=== PATIENT | female | born 1950 | race Caucasian/White ===

== ENCOUNTER 2017-01-28 05:27 | Inpatient (IN) | payer MEDICARE, BC ==
--- NOTE | 2017-01-05 14:00 | NUR ---
JOINT REPLACEMENT PREOP CLASS PATIENT ATTENDED JOINT REPLACEMENT PREOP CLASS. CASE MANAGEMENT CONTACT INFORMATION PROVIDED. EDUCATION WAS PROVIDED REGARDING WHAT TO EXPECT BEFORE, DURING AND AFTER SURGERY. INCLUDING: OVERVIEW OF ANATOMY AND PHYSIOLOGY HOSPITAL TREATMENT SCHEDULE THERAPY DEMONSTRATION CASE MANAGEMENT RESPONSIBILITIES DISCHARGE PLANNING EQUIPMENT NEEDS JOINT REPLACEMENT WORKBOOK ANTI-COAGULATION SURGERY STRONG NUTRITIONAL PROTOCOL DISCHARGE INSTRUCTIONS [facility] [place] [facility] PATIENT PORTAL, WITH INSTRUCTIONS CJR AND PREOP SURVERY PREOP BATHING- CHG GIVEN ALL PATIENT'S QUESTIONS ANSWERED TO THEIR SATISFACTION. PATIENTS AND COACHES ENCOURAGED TO CALL WITH ANY ADDITIONAL QUESTIONS OR CONCERNS. CM FOLLOWING FOR TRANSITIONAL CARE PLANNING NEEDS DURING HOSPITALIZATION.
--- NOTE | 2017-01-06 10:35 | NUR ---
PMH, allergies, meds reviewed and documented. Preop and DOS instructions given, patient has already received the handouts of medications to stop before surgery, shower instructions and CHG, ortho consent, letter from Dr Thompson, Surgical Services pamphlet and my contact information. Patient attended class yesterday and had minimal questions. Addendum: 01/06/17 at 1333 by KAROLYN WHALEN RN I did compliment that patient on cutting back on her smoking down to only a couple of cigarettes per day. I encouraged her to continue to try to quit before surgery due to the increased risk of infection.
[~2017-01-28] VITALS: Ht 167.6 cm; Wt 92.4 kg
[2017-01-28] VITALS (45 sets, daily range): BP systolic 83–154; BP diastolic 51–95; PULSE 54–84; RESP 12–25; TEMP 96.4–98.1; O2SAT 87–97; Ht 167.6 cm; Wt 92.4 kg
[~2017-01-28 05:27] MED LIST: ASPI-557 PO; CHOL100018 PO; ESTR0.5T4 PO; GABA-338 PO; GLIM1TAB2 PO; METF10002 PO; MULT-933 PO; NAPR500T3 PO; TRAM50TA4 PO; VITA400C19 PO
--- OUTSIDE RECORDS SUMMARY | 2017-01-28 05:34 | XMS REPORT | Referral Summary ---
Author Author [facility], [facility] Organization [facility] Address Unknown Phone Unavailable Care Team Providers Care Television Production Technician Name Role Phone Chelsey Yarbrough Primary Care Physician [phone] Encounter Date(s): 07/20/16 - 07/20/16 [facility] [address] [place] [id number]- Discharge Diagnosis: Bronchitis Discharge Diagnosis: Tobacco use Discharge Disposition: 01-Home or Self Care Attending Physician: Jb Hanson PA-C Admitting Physician: Jb Hanson PA-C Vital Signs Most recent to 1 oldest [Reference Range]: Temperature Tympanic 37.0 degC [36.6-38.1 degC] (07/20/16 5:28 PM) Peripheral Pulse 88 bpm Rate [60-100 bpm] (07/20/16 5:28 PM) Blood Pressure 140/88 mmHg [90-140/60-90 mmHg] (07/20/16 5:28 PM) SpO2 93 % (07/20/16 5:28 PM) Problem List Condition Effective Dates Status Health Status Informant Diabetes(Confirmed) Active Allergies, Adverse Reactions, Alerts No Known Allergies Medications albuterol CFC free 90 mcg/inh inhalation aerosol 2 puffs, Inhalation, q4hr, as needed for wheezing, # 18 g, 0 Refill(s), Pharmacy : [facility] [id number] Start Date: 07/20/16 Status: Ordered estradiol cypionate mg, IntraMuscular, q4wk, 0 Refill(s) Start Date: 07/20/16 Status: Ordered gabapentin Oral, 0 Refill(s) Start Date: 07/20/16 Status: Ordered Januvia Oral, Daily, 0 Refill(s) Start Date: 07/20/16 Status: Ordered metFORMIN Oral, 0 Refill(s) Start Date: 07/20/16 Status: Ordered Tessalon Perles 100 mg oral capsule 100 mg 1 caps, Oral, TID, X 10 days, # 30 caps, 0 Refill(s), Pharmacy: [id number], 1 caps Oral TID,x10 days Start Date: 07/20/16 Stop Date: 07/30/16 Status: Ordered Results No data available for this section Immunizations No data available for this section Procedures Procedure Date Related Diagnosis Body Site Arthroscopy of knee with meniscus repair1 H/O: hysterectomy 1bilateral Social History Social History Type Response Smoking Status Current every day smoker; Type: Cigarettes; Tobacco use per day: 1/2 pack or more Assessment and Plan No data available for this section
--- OUTSIDE RECORDS SUMMARY | 2017-01-28 05:34 | XMS REPORT | Summary of Care ---
Author Author Javier Jacobson M.D. Organization Unknown Address [address] [place], [place] [id number] Phone Unavailable Care Team Providers Care Superintendent Nonselling Name Role Phone Jose Kapoor, Andre Unavailable Unavailable Kasie Garcia PP Unavailable Unavailable Unavailable Functional Status Functional Status Health Issues* Name Dates Details Functional status health issues are not documented Status: Cognitive Status Health Issues* Name Dates Details Cognitive status health issues are not documented Status: Problems Name Dates Details Pain in joint of right knee (719.46, M25.561) Status: Active Pain in joint of left knee (719.46, M25.562) Status: Active Dysphagia (787.20, R13.10) Status: Active Postmenopausal status (V49.81, Z78.0) Status: Active Chronic periodontal disease (523.9, K05.6) Status: Active Eczema, dyshidrotic (705.81, L30.1) Status: Active Diabetes mellitus (250.00, E11.9) Status: Active Osteoarthritis of knee (715.96, M17.9) Status: Active Rash (782.1, R21) Status: Active Menopausal symptoms (627.2, N95.1) Status: Active Type 2 diabetes mellitus, uncontrolled (250.02, E11.65) Status: Active Hypertension (401.9, I10) Status: Active Nocturia (788.43, R35.1) Status: Active Obesity (278.00, E66.9) Status: Active Overactive bladder (596.51, N32.81) Status: Active Granuloma annulare (695.89, L92.0) Status: Active Medications Name Dates Details Neurontin 800 MG Oral Tablet * Started 24-Feb-2013 ActiveClobetasol Propionate 0.05 % External Cream APPLY SPARINGLY TO AFFECTED AREA(S) TWICE DAILY * Quantity: 1 Refills: 1 Kasie Garcia M.D.* Started 24-Jul-2014 [id number] GM Tube MetFORMIN HCl - 1000 MG Oral Tablet TAKE 1 TABLET TWICE DAILY WITH MEALS. * Quantity: 180 Refills: 3 Kasie Garcia M.D.* Started 04-Jan-2015 ActiveJanuvia 100 MG Oral Tablet TAKE 1 TABLET BY MOUTH DAILY DX 250 * Quantity: 30 Refills: 3 Kasie Garcia M.D.* Started 04-Jan-2015 ActiveAccu-Chek FastClix Lancets Miscellaneous TEST ONCE DAILY AND NEEDED. DX 250.02 * Quantity: 1 Refills: 2 Kasie Garcia M.D.* Started 17-Jan-2015 [id number] Miscellaneous Box Accu-Chek SmartView In Vitro Strip TEST ONCE DAILY. AND NEEDED DX 250.02 * Quantity: 1 Refills: 2 Kasie Garcia M.D.* Started 17-Jan-2015 [id number] Strip Box Allergies and Adverse Reactions Name Dates Details No Known Drug Allergies Status: Active Past Medical History Name Dates Details History of Benign colon polyp (211.3, K63.5) Status: Resolved History of Intercostal neuritis (353.8, G54.8) Status: Resolved Procedures Procedure Dates Details History of Hysterectomy History of Knee Arthroscopy Procedures not documented Immunization Name Dates Details Zoster (Zostavax) Comments: Approx [id number] Tetanus-Diphtheria Toxoids Td 2-2 LF/0.5ML Intramuscular Suspension Comments: Approx [id number] Influenza Comments: Approx [id number] Influenza Lot #: [id number] Administered on:31-Aug-2013 Prevnar 13 Intramuscular Suspension Lot #: [id number] Administered on:15-Feb-2015 Family History Mother* Name Dates Details Family history of diabetes mellitus (V18.0, Z83.3) Status: Active Social History Name Dates Details Smoking Status* Former smoker Vital Signs Date Test Result Details No Known Vitals to report Results Date Description Value Details Results not documented Plan of Care Planned Observations* Name Dates Details Planned Goals not documented Goal Planned Encounters* Appointment; Provider: Kasie Garcia On 09:00 Instructions * Instructions not documented Encounters Appointment; Javier Jacobson Encounter Diagnosis: Problem not documented On 13:30 Appointment; Kasie Garcia Encounter Diagnosis: Problem not documented On 15-Feb-2015 09:30 Appointment; Kasie Garcia Encounter Diagnosis: Problem not documented On 04-Jan-2015 14:45 Appointment; Kasie Garcia Encounter Diagnosis: Problem not documented On 24-Jul-2014 13:45 Appointment; Ramiro Triplett Encounter Diagnosis: Problem not documented On 16-Oct-2013 08:30 Appointment; Kasie Garcia Encounter Diagnosis: Problem not documented On 09-Oct-2013 10:15 Appointment; Ramiro Triplett Encounter Diagnosis: Problem not documented On 09-Oct-2013 08:30 Appointment; Ramiro Triplett Encounter Diagnosis: Problem not documented On 02-Oct-2013 08:30 Appointment; Kasie Garcia Encounter Diagnosis: Problem not documented On 31-Aug-2013 15:00
--- OUTSIDE RECORDS SUMMARY | 2017-01-28 05:34 | XMS REPORT | Summary of Care ---
Author Author Phu Yarbrough Organization Unknown Address [address] [place], [place] [id number] Phone Unavailable Care Team Providers Care Aeronautical Test Engineer Name Role Phone Phu Yarbrough Unavailable Unavailable Andre Garcia M.D. Unavailable Unavailable Sawyer Yarbrough Unavailable Unavailable Unavailable Unavailable Functional Status Name Dates Details Functional status health issues are not documented Status: Name Dates Details Cognitive status health issues are not documented Status: Problems Name Dates Details Pain in joint of right knee (719.46, M25.561) Status: Active Pain in joint of left knee (719.46, M25.562) Status: Active Dysphagia (787.20, R13.10) Status: Active Chronic periodontal disease (523.9, K05.6) Status: Active Eczema, dyshidrotic (705.81, L30.1) Status: Active Hypertension (401.9, I10) Status: Active Nocturia (788.43, R35.1) Status: Active Overactive bladder (596.51, N32.81) Status: Active Osteoarthritis of knee (715.36, M17.9) Status: Active Granuloma annulare (695.89, L92.0) Status: Active Screening (V82.9, Z13.9) Status: Active Menopausal symptoms (627.2, N95.1) Status: Active Morbid obesity due to excess calories (278.01, E66.01) Status: Active Shingles rash (053.9, B02.9) Status: Active Rib pain on right side (786.50, R07.81) Status: Active Diabetes mellitus (250.00, E11.9) Status: Active Neuropathy, thoracic (radicular) (724.4, M54.14) Status: Active Postmenopausal status (V49.81, Z78.0) Status: Active Pre-op exam (V72.84, Z01.818) Status: Active Medications Name Dates Details Gabapentin 400 MG Oral Capsule TAKE 1 CAPSULE 4 TIMES DAILY. Quantity: 120 Kempke Phu * Start 24-Feb-2013 Active Estradiol 0.5 MG Oral Tablet TAKE 1 TABLET BY MOUTH DAILY * Quantity: 90 Refills: 3 Zenon Phu * Start Active Clobetasol Propionate 0.05 % External Cream APPLY SPARINGLY TO AFFECTED AREA(S) TWICE DAILY * Quantity: 1 Refills: 1 Kasie Garcia M.D. Start 24-Jul-2014 Active 30 GM Tube MetFORMIN HCl - 1000 MG Oral Tablet TAKE 1 TABLET TWICE DAILY WITH MEALS. * Quantity: 180 Refills: 0 Phu Yarbrough * Start 04-Jan-2015 Active Accu-Chek FastClix Lancets Miscellaneous TEST ONCE DAILY AND NEEDED. DX 250.02 * Quantity: 1 Refills: 2 Kasie Garcia M.D. * Start 17-Jan-2015 Active 102 Miscellaneous Box Accu-Chek SmartView In Vitro Strip TEST ONCE DAILY. AND NEEDED DX 250.02 * Quantity: 1 Refills: 2 Kasie Garcia M.D. Start 17-Jan-2015 Active 100 Strip Box TraMADol HCl - 50 MG Oral Tablet TAKE 1 TABLET BY MOUTH EVERY 4 TO 6 HOURS NEEDED FOR PAIN * Quantity: 80 Refills: 0 Phu Yarbrough * Start 17-Sep-2016 Active Flovent HFA 110 MCG/ACT Inhalation Aerosol INHALE 2 PUFFS Twice daily PRN * Quantity: 1 Refills: 1 Phu Yarbrough * Start 26-Jun-2016 Active 12 GM Inhaler Glimepiride 2 MG Oral Tablet TAKE 1 TABLET DAILY DIRECTED. * Quantity: 30 Refills: 3 Phu Yarbrough * Start 07-Aug-2016 Active Allergies and Adverse Reactions Name Dates Details No Known Drug Allergies (Allergy) Status: Active Past Medical History Name Dates Details History of Benign colon polyp (211.3, K63.5) Status: Resolved History of Intercostal neuritis (353.8, G58.8) Status: Resolved History of Type 2 diabetes mellitus, uncontrolled (250.02, E11.65) Status: Resolved Procedures Procedure Dates Details History of Hysterectomy History of Knee Arthroscopy HEMOGLOBIN A1C 3507 Ordered: 11-Nov-2016 BASIC METABOLIC PROFILE 1210 Ordered: 11-Nov-2016 Immunization Name Dates Details Zoster (Zostavax) Comments: Approx [id number] Tetanus-Diphtheria Toxoids Td 2-2 LF/0.5ML Intramuscular Suspension Comments: Approx [id number] Influenza Comments: Approx [id number] Influenza Lot #: [id number] on: 31-Aug-2013 Prevnar 13 Intramuscular Suspension Lot #: [id number] on: 15-Feb-2015 Family History Name Dates Details Family history of diabetes mellitus (V18.0, Z83.3) Status: Active Social History Name Dates Details - Status: Name Dates Details Former smoker Vital Signs Date Test Result Details No Known Vitals to report Results Date Description Value Details 08-Jan-2017 09:50 CBC w/ Auto Diff 7150 WBC 9.2 K/uL Range: 4.5-11.0 RBC 5.47 mil/uL (Above high threshold) Range: 3.60-5.00 HGB 16.8 g/dL (Above high threshold) Range: 12.0-16.0 HCT 49.3 % (Above high threshold) Range: 36.0-48.0 MCV 90.1 fL Range: 80.0-99.0 MCH 30.7 pg Range: 27.3-32.5 MCHC 34.1 % Range: 32.0-36.0 RDW 14.5 % Range: 11.6-14.8 PLATELETS 289 K/uL Range: 150-400 MPV 6.7 fL Range: 6.0-11.0 %NEUTRO 61.1 % Range: 37.0-80.0 %LYMPHS 29.8 % Range: 13.0-50.0 %MONO 5.0 % Range: 0.0-12.0 %EOS 1.5 % Range: 0.0-7.0 %BASO 0.6 % Range: 0.0-2.5 %NIHARIKA 2.0 % Range: 0.0-5.0 NEUTRO 5.6 K/uL Range: 2.0-6.9 LYMPHS 2.7 K/uL Range: 0.6-3.4 MONOS 0.5 K/uL Range: 0.0-0.9 EOS 0.1 K/uL Range: 0.0-0.7 BASO 0.1 K/uL Range: 0.0-0.2 10:08 ECG/ EKG Preop Electro CardioGram ECG waiting for interpretation, click ImageLink button to view/confirm the study. 10:10 XRay CHEST-PA & LAT Comments: Exam Date: 2017 09:51Dictation Date: 2017 10:10 X CHEST PA & LAT 10:12 Comprehensive Metabolic Panel 1212 SODIUM 140 mmol/L Range: 133-144 POTASSIUM 3.8 mmol/L Range: 3.5-5.1 CHLORIDE 102 mmol/L Range: 98-110 CARBON DIOXIDE 26.1 mmol/L Range: 23.0-33.0 ANION GAP 12 mmol/L Range: 6-16 BUN 14 mg/dL Range: 7-18 CREATININE, SERUM 0.72 mg/dL Range: 0.55-1.02 BUN:CREATININE RATIO 19 EST GFR, >60 ml/min Range: >60 EST GFR, NON-AFR LAO >60 ml/min Range: >60 Comments: EST GFR is reported in ml/min per 1.73 m2 of body surface area. ----- GLUCOSE 140 mg/dL (Above high threshold) Range: 70-100 ALK PHOSPHATASE 69 U/L Range: 46-116 TOTAL BILIRUBIN 0.60 mg/dL Range: 0.20-1.00 AST 27 U/L Range: 8-35 ALT 35 U/L Range: 14-59 ALBUMIN 4.0 g/dL Range: 3.4-5.0 TOTAL PROTEIN 7.7 g/dL Range: 6.4-8.2 A/G RATIO 1.1 units Range: 1.0-1.8 CALCIUM 8.7 mg/dL Range: 8.5-10.1 Plan of Care Name Dates Details Planned Observations Planned Goals not documented Planned Encounters Appointment; Provider: Phu Yarbrough On 17-Feb-2017 10:15 Appointment; Provider: Phu Yarbrough On 08-Jan-2017 11:45 Interventions Provided Labs/Procedures/Imaging* XRay CHEST-PA & LAT; Done: 08Jan2017 10:10AM Instructions Name Dates Details Instructions not documented Encounters Appointment; Phu Yarbrough Encounter Diagnosis: Problem not documented On 11-Nov-2016 11:00 Appointment; Phu Yarbrough Encounter Diagnosis: Problem not documented On 07-Aug-2016 11:00 Appointment; Phu Yarbrough Encounter Diagnosis: Problem not documented On 26-Jun-2016 11:45 Appointment; Phu Yarbrough Encounter Diagnosis: Problem not documented On 10:15 Appointment; Phu Yarbrough Encounter Diagnosis: Problem not documented On 10:30 Appointment; Kasie Garcia M.D. Encounter Diagnosis: Problem not documented On 14:45 Appointment; Javier Jacobson M.D. Encounter Diagnosis: Problem not documented On 13:30 Appointment; Kasie Garcia M.D. Encounter Diagnosis: Problem not documented On 15-Feb-2015 09:30
--- OUTSIDE RECORDS SUMMARY | 2017-01-28 05:34 | XMS REPORT | Summary of Care ---
Author Author Phu Yarbrough Organization Unknown Address [address], [place] [id number] Phone Unavailable Care Team Providers Care Nut Former Name Role Phone Phu Yarbrough Unavailable Unavailable Andre Garcia M.D. Unavailable Unavailable Sawyer Yarbrough PP Unavailable Unavailable Unavailable Functional Status Functional [...] Active Granuloma annulare (695.89, L92.0) Status: Active Postmenopausal status (V49.81, Z78.0) Status: Active Screening (V82.9, Z13.9) Status: Active Diabetes mellitus (250.00, E11.9) Status: Active Menopausal symptoms (627.2, N95.1) Status: Active Morbid obesity due to excess calories (278.01, E66.01) Status: Active Neuropathy, thoracic (radicular) (724.4, M54.14) Status: Active Shingles rash (053.9, B02.9) Status: Active Medications Name Dates Details Gabapentin 400 MG Oral Capsule TAKE 2 CAPSULES ONCE DAILY Quantity: 60 Phu Yarbrough * Started 24-Feb-2013 ActiveEstradiol 0.5 MG Oral Tablet TAKE 1 TABLET BY MOUTH DAILY * Quantity: 90 Refills: 3 Kasie Garcia M.D.* Started ActiveClobetasol Propionate 0.05 % External Cream APPLY SPARINGLY TO AFFECTED AREA(S) TWICE DAILY * Quantity: 1 Refills: 1 Kasie Garcia M.D.* Started 24-Jul-2014 [id number] GM Tube MetFORMIN HCl - 1000 MG Oral Tablet TAKE 1 TABLET TWICE DAILY WITH MEALS. * Quantity: 180 Refills: 0 Phu Yarbrough * Started 04-Jan-2015 ActiveJanuvia 100 MG Oral Tablet TAKE 1 TABLET BY MOUTH DAILY * Quantity: 30 Refills: 5 Phu Yarbrough * Started 04-Jan-2015 ActiveAccu-Chek FastClix Lancets Miscellaneous TEST ONCE DAILY AND NEEDED. DX 250.02 * Quantity: 1 Refills: 2 Kasie Garcia M.D.* Started 17-Jan-2015 [id number] Miscellaneous Box Accu-Chek SmartView In Vitro Strip TEST ONCE DAILY. AND NEEDED DX 250.02 * Quantity: 1 Refills: 2 Kasie Garcia M.D.* Started 17-Jan-2015 [id number] Strip Box Acyclovir 800 MG Oral Tablet take 1 tablet 5 times daily for 7 days * Quantity: 35 Refills: 0 Phu Yarbrough * Started ActiveHydrocodone-Acetaminophen 5-325 MG Oral Tablet TAKE 1 TABLET EVERY 4 TO 6 HOURS NEEDED FOR PAIN. * Quantity: 60 Refills: 0 Phu Yarbrough * Started Active Allergies and Adverse Reactions Name Dates Details No Known Drug Allergies Status: Active Past Medical History Name Dates Details History of Benign colon polyp (211.3, K63.5) Status: Resolved History of Intercostal neuritis (353.8, G58.8) Status: Resolved History of Type 2 diabetes mellitus, uncontrolled (250.02, E11.65) Status: Resolved Procedures Procedure Dates Details History of Hysterectomy History of Knee Arthroscopy HEMOGLOBIN A1C 3507 Ordered: BASIC METABOLIC PROFILE 1210 Ordered: Immunization Name Dates Details Zoster (Zostavax) Comments: Approx [id number] Tetanus-Diphtheria Toxoids Td 2-2 LF/0.5ML Intramuscular Suspension Comments: Approx [id number] Influenza Comments: Approx [id number] Influenza Lot #: [id number] Administered on:31-Aug-2013 Prevnar 13 Intramuscular Suspension Lot #: [id number] Administered on:15-Feb-2015 Family History Mother* Name Dates Details Family history of diabetes mellitus (V18.0, Z83.3) Status: Active Social History Name Dates Details Smoking Status* Former smoker Vital Signs Date Test Result Details No Known Vitals to report Results Date Description Value Details Results not documented Plan of Care Planned Observations* Name Dates Details Planned Goals not documented Goal Planned Encounters* Appointment; Provider: Phu Yarbrough On 07-Aug-2016 11:00 Instructions * Instructions not documented Encounters Appointment; Phu Yarbrough Encounter Diagnosis: Problem not documented On 10:30 Appointment; Kasie Garcia Encounter Diagnosis: Problem not documented On 14:45 Appointment; Javier Jacobson Encounter Diagnosis: Problem not documented On 13:30 Appointment; Kasie Garcia Encounter Diagnosis: Problem not documented On 15-Feb-2015 09:30 Appointment; Kasie Garcia Encounter Diagnosis: Problem not documented On 04-Jan-2015 14:45 Appointment; Kasie Garcia Encounter Diagnosis: Problem not documented On 24-Jul-2014 13:45
--- OUTSIDE RECORDS SUMMARY | 2017-01-28 05:34 | XMS REPORT | Summary of Care ---
Author Author Phu Yarbrough Organization Unknown Address [address] [place], [place] [id number] Phone Unavailable Care Team Providers Care Strategic Partner Development Manager Name Role Phone Phu Yarbrough Unavailable Unavailable [...] Active Postmenopausal status (V49.81, Z78.0) Status: Active Medications Name Dates Details Gabapentin 400 MG Oral Capsule TAKE 1 CAPSULE 4 TIMES DAILY. Quantity: 120 Phu Yarbrough * Start 24-Feb-2013 Active Estradiol 0.5 MG Oral Tablet TAKE 1 TABLET BY MOUTH DAILY * Quantity: 90 Refills: 3 Zenon Phu * Start Active Clobetasol Propionate 0.05 % External Cream APPLY SPARINGLY TO AFFECTED AREA(S) TWICE DAILY * Quantity: 1 Refills: 1 Kasie Garcia M.D. * Start 24-Jul-2014 Active 30 GM Tube MetFORMIN HCl - 1000 MG Oral Tablet TAKE 1 TABLET TWICE DAILY WITH MEALS. * Quantity: 180 Refills: 0 Phu Yarbrough * Start 04-Jan-2015 Active Accu-Chek FastClix Lancets Miscellaneous TEST ONCE DAILY AND NEEDED. DX 250.02 * Quantity: 1 Refills: 2 Kasie Garcia M.D. Start 17-Jan-2015 Active 102 Miscellaneous Box Accu-Chek [...] Name Dates Details Zoster (Zostavax) Comments: Approx [id number] Tetanus-Diphtheria Toxoids Td 2-2 LF/0.5ML Intramuscular Suspension Comments: Approx [id number] Influenza Comments: Approx [id number] Influenza Lot #: [id number] on: 31-Aug-2013 Prevnar 13 Intramuscular Suspension Lot #: [id number] on: 15-Feb-2015 Family History Name Dates Details Family history of diabetes mellitus (V18.0, Z83.3) Status: Active Social History Name Dates Details - Status: Name Dates Details Former smoker Vital Signs Date Test Result Details 11-Nov-2016 10:59 BP Systolic 116 mm[Hg] Status: Comments: Location: ; Position: BP Diastolic 64 mm[Hg] Status: Comments: Location: ; Position: Heart Rate 82 /min Status: Comments: Location: ; Weight 195.25 lb Status: Physical Findings 96 Status: Comments: O2 Saturation Body Mass Index Calculated 31.51 kg/m2 Status: Body Surface Area Calculated 1.98 m2 Status: Results Date Description Value Details Results not documented Plan of Care Name Dates Details Planned Observations HEMOGLOBIN A1C 3507 On 10-Feb-2017 Intent BASIC METABOLIC PROFILE 1210 On 10-Feb-2017 Intent Planned Goals not documented Planned Encounters Appointment; Provider: Phu Yarbrough On 17-Feb-2017 10:15 Interventions Provided Medication Changes* Estradiol 0.5 MG Oral Tablet - Renew * Glimepiride 2 MG Oral Tablet - Renew Instructions Name Dates Details Instructions not documented [...] documented On 15-Feb-2015 09:30 Appointment; Kasie Garcia M.D. Encounter Diagnosis: Problem not documented On 04-Jan-2015 14:45
--- OUTSIDE RECORDS SUMMARY | 2017-01-28 05:34 | XMS REPORT | Summary of Care ---
Author Author Kasie Garcia M.D. Organization Unknown Address [address], [place] [id number] Phone Unavailable Care Team Providers Care Bioinformatics Research Technician Name Role Phone Jose Kaporo, Andre Unavailable Unavailable Kasie Garcia PP Unavailable [...] Refills: 1 Kasie Garcia M.D.* Started 24-Jul-2014 [id number] GM Tube MetFORMIN HCl - 1000 MG [...] Refills: 2 Kasie Garcia M.D.* Started 17-Jan-2015 [id number] Miscellaneous Box Accu-Chek SmartView In Vitro Strip TEST ONCE DAILY. AND NEEDED DX 250.02 * Quantity: 1 Refills: 2 Kasie Garcia M.D.* Started 17-Jan-2015 [id number] Strip Box Allergies and Adverse Reactions Name Dates Details No Known Drug Allergies Status: Active Past Medical History Name Dates Details History of Benign colon polyp (211.3, K63.5) Status: Resolved History of Intercostal neuritis (353.8, G54.8) Status: Resolved Procedures Procedure Dates Details History of Hysterectomy History of Knee Arthroscopy Procedures not documented Immunization Name Dates Details Zoster (Zostavax) Comments: Approx [id number] Tetanus-Diphtheria Toxoids Td 2-2 LF/0.5ML Intramuscular Suspension Comments: Approx [id number] Influenza Comments: Approx [id number] Influenza Lot #: [id number] Administered on:31-Aug-2013 Prevnar 13 Intramuscular Suspension Lot #: [id number] Administered on:15-Feb-2015 Family History Mother* Name Dates [...]
--- OUTSIDE RECORDS SUMMARY | 2017-01-28 05:34 | XMS REPORT | Summary of Care ---
Author Author Phu Yarbrough Organization Unknown Address [address] [place], [place] [id number] Phone Unavailable Care Team Providers Care Tobacco Sample Puller Name Role Phone Phu Yarbrough Unavailable Unavailable [...] 400 MG Oral Capsule TAKE 2 CAPSULES BY MOUTH EVERY DAY Quantity: 180 Phu Yarbrough * Start 02-Jul-2016 Active Estradiol 0.5 MG Oral Tablet TAKE 1 TABLET BY MOUTH DAILY * Quantity: 90 Refills: 3 Kasie Garcia M.D. Start Active Clobetasol Propionate 0.05 % External Cream APPLY SPARINGLY TO AFFECTED AREA(S) TWICE DAILY * Quantity: 1 Refills: 1 Kasie Garcia M.D. * Start 24-Jul-2014 Active 30 GM Tube MetFORMIN HCl - 1000 MG Oral Tablet TAKE 1 TABLET TWICE DAILY WITH MEALS. * Quantity: 180 Refills: 0 Phu Yarbrough * Start 04-Jan-2015 Active Januvia 100 MG Oral Tablet TAKE 1 TABLET BY MOUTH DAILY * Quantity: 30 Refills: 5 Phu Yarbrough * Start 04-Jan-2015 Active Accu-Chek [...] - 50 MG Oral Tablet TAKE 1 TO 2 TABLETS BY MOUTH EVERY 4 TO 6 HOURS NEEDED FOR PAIN * Quantity: 80 Refills: 0 Phu Yarbrough * Start 11-Jun-2016 Active Flovent HFA 110 MCG/ACT Inhalation Aerosol INHALE 2 PUFFS Twice daily PRN * Quantity: 1 Refills: 1 Phu Yarbrough * Start 26-Jun-2016 Active 12 GM Inhaler Allergies and Adverse Reactions Name Dates Details [...] Name Dates Details Zoster (Zostavax) Comments: Approx [id number] Tetanus-Diphtheria Toxoids Td 2-2 LF/0.5ML Intramuscular Suspension Comments: Approx [id number] Influenza Comments: Approx [id number] Influenza Lot #: [id number] on: 31-Aug-2013 Prevnar 13 Intramuscular Suspension Lot #: [id number] on: 15-Feb-2015 Family History Name Dates Details Family history of diabetes mellitus (V18.0, Z83.3) Status: Active Social History Name Dates Details - Status: Name Dates Details Former smoker Vital Signs Date Test Result Details 07-Aug-2016 11:02 BP Systolic 138 mm[Hg] Status: Comments: Location: ; Position: BP Diastolic 70 mm[Hg] Status: Comments: Location: ; Position: Heart Rate 90 /min Status: Comments: Location: ; Height 66 in Status: Weight 190 lb Status: Physical Findings 96 Status: Comments: O2 Saturation Body Mass Index Calculated 30.67 kg/m2 Status: Body Surface Area Calculated 1.96 m2 Status: Results Date Description Value Details 07-Aug-2016 09:18 CBC w/ Auto Diff 7150 Comments: Fastin hours WBC 9.5 K/uL Range: 4.5-11.0 RBC 5.29 mil/uL (Above high threshold) Range: 3.60-5.00 HGB 16.0 g/dL Range: 12.0-16.0 HCT 45.9 % Range: 36.0-48.0 MCV 86.9 fL Range: 80.0-99.0 MCH 30.2 pg Range: 27.3-32.5 MCHC 34.8 % Range: 32.0-36.0 RDW 13.7 % Range: 11.6-14.8 PLATELETS 306 K/uL Range: 150-400 MPV 5.8 fL (Below low threshold) Range: 6.0-11.0 %NEUTRO 67.5 % Range: 37.0-80.0 %LYMPHS 25.8 % Range: 13.0-50.0 %MONO 3.4 % Range: 0.0-12.0 %EOS 1.5 % Range: 0.0-7.0 %BASO 0.5 % Range: 0.0-2.5 %NIHARIKA 1.3 % Range: 0.0-5.0 NEUTRO 6.4 K/uL Range: 2.0-6.9 LYMPHS 2.5 K/uL Range: 0.6-3.4 MONOS 0.3 K/uL Range: 0.0-0.9 EOS 0.1 K/uL Range: 0.0-0.7 BASO 0.1 K/uL Range: 0.0-0.2 09:39 BASIC METABOLIC PROFILE 1210 Comments: Fastin hours SODIUM 138 mmol/L Range: 133-144 POTASSIUM 3.9 mmol/L Range: 3.5-5.1 CHLORIDE 104 mmol/L Range: 98-110 CARBON DIOXIDE 26.7 mmol/L Range: 23.0-33.0 ANION GAP 7 mmol/L Range: 6-16 BUN 13 mg/dL Range: 7-18 CREATININE, SERUM 0.79 mg/dL Range: 0.55-1.02 EST GFR, >60 ml/min Range: >60 EST GFR, NON-AFR TONGAN >60 ml/min Range: >60 Comments: EST GFR is reported in ml/min per 1.73 m2 of body surface area. ----- BUN:CREATININE RATIO 16 GLUCOSE 161 mg/dL (Above high threshold) Range: 70-100 CALCIUM 8.6 mg/dL Range: 8.5-10.1 09:39 LIPID PROFILE 1184 Comments: Fastin hours CHOLESTEROL 197 mg/dL Range: <200 TRIGLYCERIDES 206 mg/dL (Above high threshold) Range: 30-200 HDL Cholesterol 55 mg/dL Range: >39 NON HDL CHOLESTEROL 142 CARDIAC RSK FACTOR 3.6 units (Below low threshold) Range: 4.4-5.0 LDL - CALCULATED 101 mg/dL Range: 0-130 10:00 THYROID STIM. HORMONE 3602 Comments: Fastin hours THYROID STIM. HORMONE 2.748 uIU/mL Range: 0.550-4.780 Comments: No established reference ranges for infants and children <2 years of age----- Plan of Care Name Dates Details Planned Observations Planned Goals not documented Interventions Provided Medication Changes* Acyclovir 800 MG Oral Tablet - Stop Instructions Name Dates Details Instructions not documented Encounters Appointment; Phu Yarbrough Encounter Diagnosis: Problem not documented On 26-Jun-2016 11:45 Appointment; Phu Yarbrough Encounter Diagnosis: Problem not documented On 10:15 Appointment; Phu Yarbrough Encounter Diagnosis: Problem not documented On 10:30 Appointment; Garcia, Kasie, M.D. Encounter Diagnosis: Problem not documented On 14:45 Appointment; Javier Jacobson M.D. Encounter Diagnosis: Problem not documented On 13:30 Appointment; Kasie Garcia M.D. Encounter Diagnosis: Problem not documented On 15-Feb-2015 09:30 Appointment; Kasie Garcia M.D. Encounter Diagnosis: Problem not documented On 04-Jan-2015 14:45
--- OUTSIDE RECORDS SUMMARY | 2017-01-28 05:34 | XMS REPORT ---
Author Author Christy Brady Organization Unknown Address [address] [place], [place] [phone] Phone Care Team Providers Care Building Pressure Washer Name Role Phone Jose Ferro PP Unavailable Unavailable Reason for Referral No Reason for Referral was given. History of Present Illness No HPI available. Problems * Normal Routine History And Physical Adult (V70.0); (Active) * Dysphagia (787.20); (Active) Medication * Doxycycline Hyclate 100 MG Oral Capsule; TAKE 1 CAPSULE TWICE DAILY UNTIL GONE.; Start Date: 01/26/2013; End Date: 02/05/2013 (Active) Allergies and Adverse Reactions * No Known Drug Allergies (Active) Past Medical History * No Significant Medical History Vital Signs Date Description Test Result 26 Jan 2013 10:30 AM recorded by: Deja Clayton Temperature 98.6 F Heart Rate 85 /min O2 SAT 96 % Results Date Description Test Name Value Reference Interpretation Status 26 Jan 2013 11:50 AM XC NECK/CHEST WITH CONTRAST XC NECK/CHEST WITH CONTRAST Active 26 Jan 2013 11:10 AM CBC w/ Auto Diff 7150 NEUTRO 6.2 K/uL 2.0-6.9 Active MPV 7.0 fL 6.0-11.0 Active PLATELETS 274 K/uL 150-400 Active RDW 13.5 % 11.6-14.8 Active MCHC 34.2 % 32.0-36.0 Active MCH 29.6 pg 27.3-32.5 Active MCV 86.6 fL 80.0-99.0 Active HCT 44.9 % 36.0-48.0 Active HGB 15.3 g/dL 12.0-16.0 Active RBC 5.18 mil/uL 3.60-5.00 H Active WBC 9.6 K/uL 4.5-11.0 Active BASO 0.1 K/uL 0.0-0.2 Active %BASO 1.0 % 0.0-2.5 Active EOS 0.1 K/uL 0.0-0.7 Active %NIHARIKA 1.5 % 0.0-5.0 Active %EOS 1.0 % 0.0-7.0 Active LYMPHS 2.6 K/uL 0.6-3.4 Active MONOS 0.5 K/uL 0.0-0.9 Active %NEUTRO 64.3 % 37.0-80.0 Active %LYMPHS 27.2 % 13.0-50.0 Active %MONO 4.9 % 0.0-12.0 Active 26 Jan 2013 11:10 AM Comprehensive Metabolic Panel 1212 A/G RATIO 1.1 units 1.0-1.8 Active TOTAL PROTEIN 7.5 g/dL 6.4-8.2 Active TOTAL BILIRUBIN 0.45 mg/dL 0.00-1.00 Active CALCIUM 8.4 mg/dL 8.5-10.1 L Active GLUCOSE 144 mg/dL 70-100 H Active BUN:CREATININE RATIO 26 Active EST GFR, NON-AFR LAO >60 ml/min >60 Active EST GFR, >60 ml/min >60 Active CARBON DIOXIDE 27 mmol/L 23-33 Active CHLORIDE 104 mmol/L 98-110 Active POTASSIUM 3.7 mmol/L 3.5-5.1 Active SODIUM 141 mmol/L 133-144 Active AST 22 U/L 8-35 Active ANION GAP 10 mmol/L 6-16 Active ALT 32 U/L 12-78 Active ALK PHOSPHATASE 79 U/L 50-136 Active ALBUMIN 3.9 g/dL 3.4-5.0 Active CREATININE, SERUM 0.68 mg/dL 0.43-1.13 Active BUN 18 mg/dL 7-18 Active Advance Directives * No Advance Directives available. Encounters * AUDIT 01/26/2013 * NEWPT30 , Provider: Jose Ferro, Status: Pen , Time: 2:45 PM 2012
--- OUTSIDE RECORDS SUMMARY | 2017-01-28 05:34 | XMS REPORT | Summary of Care ---
Author Author Phu Yarbrough Organization Unknown Address [address] [place], [place] [id number] Phone Unavailable Care Team Providers Care Mobile Home Installer Name Role Phone Phu Yarbrough Unavailable Unavailable [...] on right side (786.50, R07.81) Status: Active Neuropathy, thoracic (radicular) (724.4, M54.14) Status: Active Medications Name Dates Details Gabapentin [...] M.D. Start 17-Jan-2015 Active 100 Strip Box Acyclovir 800 MG Oral Tablet take 1 tablet 5 times daily for 7 days * Quantity: 35 Refills: 0 Phu Yarbrough * Start Active TraMADol HCl - 50 MG Oral Tablet [...] History of Hysterectomy History of Knee Arthroscopy LIPID PROFILE 1184 Ordered: 26-Jun-2016 THYROID STIM. HORMONE 3602 Ordered: 26-Jun-2016 CBC w/ Auto Diff 7150 Ordered: 26-Jun-2016 Immunization Name Dates Details Zoster (Zostavax) Comments: Approx [id number] Tetanus-Diphtheria Toxoids Td 2-2 LF/0.5ML Intramuscular Suspension Comments: Approx [id number] Influenza Comments: Approx [id number] Influenza Lot #: [id number] on: 31-Aug-2013 Prevnar 13 Intramuscular Suspension Lot #: [id number] on: 15-Feb-2015 Family History Name Dates Details Family history of diabetes mellitus (V18.0, Z83.3) Status: Active Social History Name Dates Details - Status: Name Dates Details Former smoker Vital Signs Date Test Result Details No Known Vitals to report Results Date Description Value Details Results not documented Plan of Care Name Dates Details Planned Observations LIPID PROFILE 1184 On 27-Jul-2016 Intent THYROID STIM. HORMONE 3602 On 27-Jul-2016 Intent CBC w/ Auto Diff 7150 On 27-Jul-2016 Intent Planned Goals not documented Planned Encounters Appointment; Provider: Phu Yarbrough On 07-Aug-2016 11:00 Interventions Provided Medication Changes* Flovent HFA 110 MCG/ACT Inhalation Aerosol - Start Instructions Name Dates Details Instructions not documented [...]
--- OUTSIDE RECORDS SUMMARY | 2017-01-28 05:34 | XMS REPORT | Summary of Care ---
Author Author Kasie Garcia M.D. Organization Unknown Address [address] [place] [place], [place] [phone] Phone Unavailable Care Team Providers Care Sleeping Bag Filler Name Role Phone Jose Kapoor, Andre Unavailable [...] Status: Active Dysphagia (787.20, R13.10) Status: Active Hypertension (401.9, I10) Status: Active Postmenopausal status (V49.81, Z78.0) Status: Active Chronic periodontal disease (523.9, K05.6) Status: Active Eczema, dyshidrotic (705.81, L30.1) Status: Active Diabetes mellitus (250.00, E11.9) Status: Active Type 2 diabetes mellitus, uncontrolled (250.02, E11.65) Status: Active Osteoarthritis of knee (715.96, M17.9) Status: Active Rash (782.1, R21) Status: Active Obesity (278.00, E66.9) Status: Active Menopausal symptoms (627.2, N95.1) Status: Active Medications Name Dates Details Neurontin 800 MG Oral Tablet * Started 24-Feb-2013 ActiveClobetasol Propionate 0.05 % External Cream APPLY SPARINGLY TO AFFECTED AREA(S) TWICE DAILY * Quantity: 1 Refills: 1 Kasie Garcia M.D.* Started 24-Jul-2014 [id number] GM Tube Januvia 100 MG Oral Tablet TAKE 1 TABLET BY MOUTH DAILY DX 250 * Quantity: 30 Refills: 3 Kasie Garcia M.D.* Started 04-Jan-2015 ActiveMetFORMIN HCl - 500 MG Oral Tablet TAKE 1 TABLET TWICE DAILY. DX 250 * Quantity: 60 Refills: 3 Kasie Garcia M.D.* Started 04-Jan-2015 Active Allergies and Adverse Reactions Name Dates Details No Known Drug Allergies Status: Active Past Medical History Name Dates Details History of Intercostal neuritis (353.8, G54.8) Status: Resolved Procedures Procedure Dates Details History of Hysterectomy History of Knee Arthroscopy HEMOGLOBIN A1C 3507 Ordered:04-Jan-2015 LIPID PROFILE 1184 Ordered:04-Jan-2015 Quant Microalbumin 1106 Ordered:04-Jan-2015 THYROID STIM. HORMONE 3602 Ordered:04-Jan-2015 Comprehensive Metabolic Panel 1212 Ordered:04-Jan-2015 CBC w/ Auto Diff 7150 Ordered:04-Jan-2015 Immunization Name Dates Details Zoster (Zostavax) Comments: Approx [id number] Tetanus-Diphtheria Toxoids Td 2-2 LF/0.5ML Intramuscular Suspension Comments: Approx [id number] Influenza Comments: Approx [id number] Influenza Lot #: [id number] Administered on:31-Aug-2013 Family History Mother* Name Dates Details Family history of diabetes mellitus (V18.0, Z83.3) Status: Active Social History Name Dates Details Smoking Status* Former smoker Vital Signs Date Test Result Details 04-Jan-2015 15:05 BP Systolic 136 mm[Hg] Status: BP Diastolic 88 mm[Hg] Status: Heart Rate 109 /min Status: Respiration Rate 20 /min Status: Weight 204.5 lb Status: O2 SAT 97 % Status: Body Mass Index Calculated 33.01 kg/m2 Status: Body Surface Area Calculated 2.02 m2 Status: Results Date Description Value Details Results not documented Plan of Care Planned Observations* Name Dates Details Planned Goals not documented Goal Planned Encounters* Appointment; Provider: Kasie Garcia On 15-Feb-2015 09:30 Instructions * Instructions not documented Encounters Appointment; Kasie Garcia Encounter Diagnosis: Problem not [...] Diagnosis: Problem not documented On 31-Aug-2013 15:00 Appointment; Kasie Garcia Encounter Diagnosis: Problem not documented On 24-Feb-2013 14:45 Appointment; Christy Brady Encounter Diagnosis: Problem not documented On 26-Jan-2013 10:30
--- OUTSIDE RECORDS SUMMARY | 2017-01-28 05:35 | XMS REPORT | Summary of Care ---
Author Author Phu Yarrbough Organization Unknown Address [address] [place], [place] [phone] Phone Unavailable Care Team Providers Care Pivot End Polisher Name Role Phone Phu Yarbrough Unavailable Unavailable [...] Status: Active Medications Name Dates Details Gabapentin 300 MG Oral Capsule TAKE 1 CAPSULE AT BEDTIME. Quantity: 30 * Started 24-Feb-2013 ActiveEstradiol 0.5 MG Oral Tablet TAKE 1 TABLET BY MOUTH DAILY * Quantity: 90 Refills: 3 Kasie Garcia M.D.* Started ActiveClobetasol Propionate 0.05 % External Cream APPLY SPARINGLY TO AFFECTED AREA(S) TWICE DAILY * Quantity: 1 Refills: 1 Kasie Garcia M.D.* Started 24-Jul-2014 [id number] GM Tube MetFORMIN HCl - 1000 MG Oral Tablet TAKE 1 TABLET TWICE DAILY WITH MEALS. * Quantity: 180 Refills: 0 Phu Yarbrough * Started 04-Jan-2015 ActiveJanuvia 100 MG Oral Tablet TAKE 1 TABLET BY MOUTH DAILY * Quantity: 30 Refills: 5 Kasie Garcia M.D.* Started 04-Jan-2015 ActiveAccu-Chek FastClix Lancets Miscellaneous TEST ONCE DAILY AND NEEDED. DX 250.02 * Quantity: 1 Refills: 2 Kasie Garcia M.D.* Started 17-Jan-2015 [id number] Miscellaneous Box Accu-Chek SmartView In Vitro Strip TEST ONCE DAILY. AND NEEDED DX 250.02 * Quantity: 1 Refills: 2 Kasie Garcia M.D.* Started 17-Jan-2015 [id number] Strip Box Allergies and Adverse Reactions Name [...] Name Dates Details Zoster (Zostavax) Comments: Approx [id number] Tetanus-Diphtheria Toxoids Td 2-2 LF/0.5ML Intramuscular Suspension Comments: Approx [id number] Influenza Comments: Approx [id number] Influenza Lot #: [id number] Administered on:31-Aug-2013 Prevnar 13 Intramuscular Suspension Lot #: [id number] Administered on:15-Feb-2015 Family History Mother* Name Dates Details Family history of diabetes mellitus (V18.0, Z83.3) Status: Active Social History Name Dates Details Smoking Status* Former smoker Vital Signs Date Test Result Details 10:35 BP Systolic 138 mm[Hg] Status: BP Diastolic 80 mm[Hg] Status: Heart Rate 101 /min Status: Height 66 in Status: Weight 193.25 lb Status: O2 SAT 98 % Status: Body Mass Index Calculated 31.19 kg/m2 Status: Body Surface Area Calculated 1.97 m2 Status: Results Date Description Value Details 11:49 CBC w/ Auto Diff 7150 Comments: Fastin hours WBC 8.3 K/uL (Better) Range: 4.5-11.0 RBC 5.65 mil/uL (Above high threshold) Range: 3.60-5.00 HGB 16.8 g/dL (Above high threshold) Range: 12.0-16.0 HCT 50.2 % (Above high threshold) Range: 36.0-48.0 MCV 88.8 fL (Better) Range: 80.0-99.0 MCH 29.7 pg (Better) Range: 27.3-32.5 MCHC 33.4 % (Better) Range: 32.0-36.0 RDW 12.5 % (Better) Range: 11.6-14.8 PLATELETS 282 K/uL (Better) Range: 150-400 MPV 7.3 fL (Better) Range: 6.0-11.0 %NEUTRO 58.9 % (Better) Range: 37.0-80.0 %LYMPHS 31.4 % (Better) Range: 13.0-50.0 %MONO 5.9 % (Better) Range: 0.0-12.0 %EOS 1.6 % (Better) Range: 0.0-7.0 %BASO 0.6 % (Better) Range: 0.0-2.5 %NIHARIKA 1.6 % (Better) Range: 0.0-5.0 NEUTRO 4.9 K/uL (Better) Range: 2.0-6.9 LYMPHS 2.6 K/uL (Better) Range: 0.6-3.4 MONOS 0.5 K/uL (Better) Range: 0.0-0.9 EOS 0.1 K/uL (Better) Range: 0.0-0.7 BASO 0.1 K/uL (Better) Range: 0.0-0.2 12:43 Comprehensive Metabolic Panel 1212 Comments: Fastin hours SODIUM 138 mmol/L (Better) Range: 133-144 POTASSIUM 4.0 mmol/L (Better) Range: 3.5-5.1 CHLORIDE 101 mmol/L (Better) Range: 98-110 CARBON DIOXIDE 23.5 mmol/L (Better) Range: 23.0-33.0 ANION GAP 14 mmol/L (Better) Range: 6-16 BUN 18 mg/dL (Better) Range: 7-18 CREATININE, SERUM 0.80 mg/dL (Better) Range: 0.55-1.02 Comments: Please note new reference ranges effective 2015.----- BUN:CREATININE RATIO 23 (Better) EST GFR, >60 ml/min (Better) Range: >60 EST GFR, NON-AFR EGYPTIAN >60 ml/min (Better) Range: >60 Comments: EST GFR is reported in ml/min per 1.73 m2 of body surface area. For -Haitian, please multiple result by 1.2.----- GLUCOSE 150 mg/dL (Above high threshold) Range: 70-100 ALK PHOSPHATASE 69 U/L (Better) Range: 46-116 TOTAL BILIRUBIN 0.50 mg/dL (Better) Range: 0.20-1.00 AST 22 U/L (Better) Range: 8-35 ALT 31 U/L (Better) Range: 14-59 Comments: Please note new reference ranges. Effective 01/10/2015.----- ALBUMIN 3.7 g/dL (Better) Range: 3.4-5.0 TOTAL PROTEIN 7.4 g/dL (Better) Range: 6.4-8.2 A/G RATIO 1.0 units (Better) Range: 1.0-1.8 CALCIUM 8.5 mg/dL (Better) Range: 8.5-10.1 12:43 Lipase 1275 Comments: Fastin hours LIPASE 170 U/L (Better) Range: 73-393 12:43 LIPID PROFILE 1184 Comments: Fastin hours CHOLESTEROL 232 mg/dL (Above high threshold) Range: <200 TRIGLYCERIDES 316 mg/dL (Above high threshold) Range: 30-200 HDL Cholesterol 48 mg/dL (Better) Range: >39 NON HDL CHOLESTEROL 184 (Better) CARDIAC RSK FACTOR 4.8 units (Better) Range: 4.4-5.0 LDL - CALCULATED 121 mg/dL (Better) Range: 0-130 12:44 THYROID STIM. HORMONE 3602 Comments: Fastin hours THYROID STIM. HORMONE 2.682 uIU/mL (Better) Range: 0.550-4.780 Comments: No established reference ranges for infants and children <2 years of age----- 14:13 HEMOGLOBIN A1C 3507 Comments: Fastin hours Hemoglobin A1C 7.6 % (Better) ESTIMATED AVG. GLUCOSE 171 (Better) Plan of Care Planned Observations* Name Dates [...] Problem not documented On 04-Jan-2015 14:45 Appointment; Ksaie Garcia Encounter Diagnosis: Problem not documented On 24-Jul-2014 13:45
--- OUTSIDE RECORDS SUMMARY | 2017-01-28 05:35 | XMS REPORT | Summary of Care ---
Author Author Phu Yarbrough Organization Unknown Address [address] [place], [place] [phone] Phone Unavailable Care Team Providers Care Print Room Worker Name Role Phone Phu Yarbrough Unavailable Unavailable [...] Refills: 1 Kasie Garcia M.D.* Started 24-Jul-2014 [id number] GM Tube MetFORMIN HCl - 1000 MG [...] Refills: 2 Kasie Garcia M.D.* Started 17-Jan-2015 [id number] Miscellaneous Box Accu-Chek SmartView In Vitro Strip TEST ONCE DAILY. AND NEEDED DX 250.02 * Quantity: 1 Refills: 2 Kasie Garcia M.D.* Started 17-Jan-2015 [id number] Strip Box Allergies and Adverse Reactions Name Dates Details No Known Drug Allergies Status: Active Past Medical History Name Dates Details History of Benign colon polyp (211.3, K63.5) Status: Resolved History of Intercostal neuritis (353.8, G58.8) Status: Resolved History of Type 2 diabetes mellitus, uncontrolled (250.02, E11.65) Status: Resolved Procedures Procedure Dates Details History of Hysterectomy History of Knee Arthroscopy ALBUMIN CREAT PANEL 1108 Ordered: Immunization Name Dates Details Zoster (Zostavax) Comments: Approx [id number] Tetanus-Diphtheria Toxoids Td 2-2 LF/0.5ML Intramuscular Suspension Comments: Approx [id number] Influenza Comments: Approx [id number] Influenza Lot #: [id number] Administered on:31-Aug-2013 Prevnar 13 Intramuscular Suspension Lot #: [id number] Administered on:15-Feb-2015 Family History Mother* Name Dates [...] ml/min (Better) Range: >60 EST GFR, NON-AFR ALGERIAN >60 ml/min (Better) Range: >60 Comments: EST GFR is reported in ml/min per 1.73 m2 of body surface area. For -Chinese, please multiple result by 1.2.----- GLUCOSE 150 [...]
--- OUTSIDE RECORDS SUMMARY | 2017-01-28 05:35 | XMS REPORT | Summary of Care ---
Author Author Kasie Garcia M.D. Organization Unknown Address [address] [place], [place] [phone] Phone Unavailable Care Team Providers Care Car Bracer Name Role Phone Jose Kapoor, Andre Unavailable [...] Active Postmenopausal status (V49.81, Z78.0) Status: Active Osteoarthritis of knee (715.96, M17.9) Status: Active Chronic periodontal disease (523.9, K05.6) Status: Active Eczema, dyshidrotic (705.81, L30.1) Status: Active Diabetes mellitus (250.00, E11.9) Status: Active Medications Name Dates Details Neurontin 800 MG Oral Tablet * Started 24-Feb-2013 ActiveClobetasol Propionate 0.05 % External Cream APPLY SPARINGLY TO AFFECTED AREA(S) TWICE DAILY * Quantity: 1 Refills: 1 Kasie Garcia M.D.* Started 24-Jul-2014 [id number] GM Tube Allergies and Adverse Reactions Name Dates Details No Known Drug Allergies Status: Active Past Medical History Name Dates Details History of Intercostal neuritis (353.8, G54.8) Status: Resolved Procedures Procedure Dates Details History of Hysterectomy HEMOGLOBIN A1C 3507 Ordered:04-Jan-2015 LIPID PROFILE 1184 Ordered:04-Jan-2015 Quant Microalbumin 1106 Ordered:04-Jan-2015 THYROID STIM. HORMONE 3602 Ordered:04-Jan-2015 Comprehensive Metabolic Panel 1212 Ordered:04-Jan-2015 CBC w/ Auto Diff 7150 Ordered:04-Jan-2015 Urinalysis, Reflex to Microscopic or Culture PRN [id number] Ordered:04-Jan-2015 Immunization Name Dates Details Zoster (Zostavax) Comments: Approx [id number] Tetanus-Diphtheria Toxoids Td 2-2 LF/0.5ML Intramuscular Suspension Comments: Approx [id number] Influenza Comments: Approx [id number] Influenza Lot #: [id number] Administered on:31-Aug-2013 Family History Mother* Name Dates [...]
--- OUTSIDE RECORDS SUMMARY | 2017-01-28 05:35 | XMS REPORT | Summary of Care ---
Author Author Kasie Garcia M.D. Organization Unknown Address [address] [place], [place] [address] Phone Unavailable Care Team Providers Care Senior Project Engineer Name Role Phone Jose Kapoor, Andre Unavailable [...] L92.0) Status: Active Medications Name Dates Details Gabapentin [...] Refills: 1 Kasie Garcia M.D.* Started 24-Jul-2014 [id number] GM Tube MetFORMIN HCl - 1000 MG [...] Refills: 2 Kasie Garcia M.D.* Started 17-Jan-2015 [id number] Miscellaneous Box Accu-Chek SmartView In Vitro Strip TEST ONCE DAILY. 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 Procedures Procedure Dates Details History of Hysterectomy History of Knee Arthroscopy Procedures not documented Immunization Name Dates Details Zoster (Zostavax) Comments: Approx [id number] Tetanus-Diphtheria Toxoids Td 2-2 LF/0.5ML Intramuscular Suspension Comments: Approx [id number] Influenza Comments: Approx [id number] Influenza Lot #: [id number] Administered on:31-Aug-2013 Prevnar 13 Intramuscular Suspension Lot #: [id number] Administered on:15-Feb-2015 Family History Mother* Name Dates Details Family history of diabetes mellitus (V18.0, Z83.3) Status: Active Social History Name Dates Details Smoking Status* Former smoker Vital Signs Date Test Result Details 14:56 BP Systolic 128 mm[Hg] Status: BP Diastolic 78 mm[Hg] Status: Weight 193 lb Status: O2 SAT 96 % Status: Body Mass Index Calculated 31.15 kg/m2 Status: Body Surface Area Calculated 1.97 m2 Status: Results Date Description Value Details 08:55 CBC w/ Auto Diff 7150 Comments: Fastin hours WBC 8.7 K/uL (Better) Range: 4.5-11.0 RBC 5.52 mil/uL (Above high threshold) Range: 3.60-5.00 HGB 16.5 g/dL (Above high threshold) Range: 12.0-16.0 HCT 48.7 % (Above high threshold) Range: 36.0-48.0 MCV 88.3 fL (Better) Range: 80.0-99.0 MCH 29.9 pg (Better) Range: 27.3-32.5 MCHC 33.9 % (Better) Range: 32.0-36.0 RDW 12.6 % (Better) Range: 11.6-14.8 PLATELETS 245 K/uL (Better) Range: 150-400 MPV 7.8 fL (Better) Range: 6.0-11.0 %NEUTRO 56.1 % (Better) Range: 37.0-80.0 %LYMPHS 31.7 % (Better) Range: 13.0-50.0 %MONO 6.7 % (Better) Range: 0.0-12.0 %EOS 2.1 % (Better) Range: 0.0-7.0 %BASO 0.8 % (Better) Range: 0.0-2.5 %NIHARIKA 2.5 % (Better) Range: 0.0-5.0 NEUTRO 4.9 K/uL (Better) Range: 2.0-6.9 LYMPHS 2.8 K/uL (Better) Range: 0.6-3.4 MONOS 0.6 K/uL (Better) Range: 0.0-0.9 EOS 0.2 K/uL (Better) Range: 0.0-0.7 BASO 0.1 K/uL (Better) Range: 0.0-0.2 09:04 RENAL PROFILE 1240 Comments: Fastin hours SODIUM 142 mmol/L (Better) Range: 133-144 POTASSIUM 3.9 mmol/L (Better) Range: 3.5-5.1 CHLORIDE 107 mmol/L (Better) Range: 98-110 CARBON DIOXIDE 22.7 mmol/L (Below low threshold) Range: 23.0-33.0 ANION GAP 12 mmol/L (Better) Range: 6-16 BUN 16 mg/dL (Better) Range: 7-18 CREATININE, SERUM 0.80 mg/dL (Better) Range: 0.55-1.02 Comments: Please note new reference ranges effective 2015.----- EST GFR, >60 ml/min (Better) Range: >60 EST GFR, NON-AFR NIGERIEN >60 ml/min (Better) Range: >60 Comments: EST GFR is reported in ml/min per 1.73 m2 of body surface area. For -Ethiopian, please multiple result by 1.2.----- BUN:CREATININE RATIO 20 (Better) GLUCOSE 143 mg/dL (Above high threshold) Range: 70-100 ALBUMIN 3.7 g/dL (Better) Range: 3.4-5.0 PHOSPHORUS 3.7 mg/dL (Better) Range: 2.5-4.9 CALCIUM 8.7 mg/dL (Better) Range: 8.5-10.1 09:55 HEMOGLOBIN A1C 3507 Comments: Fastin hours Hemoglobin A1C 7.2 % (Better) ESTIMATED AVG. GLUCOSE 160 (Better) 08-Feb-2015 00:00 Diabetic Eye Exam No diabetic retinopathy (Better) Plan of Care Planned Observations* Name Dates Details Planned Goals not documented Goal Instructions * Instructions not documented Encounters Appointment; [...]
--- OUTSIDE RECORDS SUMMARY | 2017-01-28 05:35 | XMS REPORT | Summary of Care ---
Author Author Kasie Garcia M.D. Organization Unknown Address [address], [place] [phone] Phone Unavailable Care Team Providers Care Sales And Training Specialist Name Role Phone Jose Kapoor, Andre Unavailable [...] Refills: 1 Kasie Garcia M.D.* Started 24-Jul-2014 [id number] GM Tube Januvia 100 MG Oral Tablet [...] Name Dates Details Zoster (Zostavax) Comments: Approx [id number] Tetanus-Diphtheria Toxoids Td 2-2 LF/0.5ML Intramuscular Suspension Comments: Approx [id number] Influenza Comments: Approx [id number] Influenza Lot #: [id number] Administered on:31-Aug-2013 Family History Mother* Name Dates [...]
--- OUTSIDE RECORDS SUMMARY | 2017-01-28 05:35 | XMS REPORT | Summary of Care ---
Author Author Phu Yarbrough Organization Unknown Address [address] [place], [place] [phone] Phone Unavailable Care Team Providers Care Finance Professor Name Role Phone Phu Yarbrough Unavailable Unavailable [...] Refills: 1 Kasie Garcia M.D.* Started 24-Jul-2014 Apgngg20 GM Tube MetFORMIN HCl - 1000 MG [...] Refills: 2 Kasie Garcia M.D.* Started 17-Jan-2015 Ixwvpw508 Miscellaneous Box Accu-Chek SmartView In Vitro Strip TEST ONCE DAILY. AND NEEDED DX 250.02 * Quantity: 1 Refills: 2 Kasie Garcia M.D.* Started 17-Jan-2015 [id number] Strip Box Allergies and Adverse Reactions Name Dates Details No Known Drug Allergies Status: Active Past Medical History Name Dates Details History of Benign colon polyp (211.3, K63.5) Status: Resolved History of Intercostal neuritis (353.8, G58.8) Status: Resolved History of Type 2 diabetes mellitus, uncontrolled (250.02, E11.65) Status: Resolved Procedures Procedure Dates Details History of Hysterectomy History of Knee Arthroscopy CBC w/ Auto Diff 7150 Ordered: HEMOGLOBIN A1C 3507 Ordered: LIPID PROFILE 1184 Ordered: Comprehensive Metabolic Panel 1212 Ordered: ALBUMIN CREAT PANEL 1108 Ordered: Lipase 1275 Ordered: THYROID STIM. HORMONE 3602 Ordered: Immunization Name Dates Details Zoster (Zostavax) Comments: Approx [id number] Tetanus-Diphtheria Toxoids Td 2-2 LF/0.5ML Intramuscular Suspension Comments: Approx [id number] Influenza Comments: Approx [id number] Influenza Lot #: [id number] Administered on:31-Aug-2013 Prevnar 13 Intramuscular Suspension Lot #: [id number] Administered on:15-Feb-2015 Family History Mother* Name Dates [...]
--- OUTSIDE RECORDS SUMMARY | 2017-01-28 05:35 | XMS REPORT | Summary of Care ---
Author Author Kasie Garcia M.D. Organization Unknown Address [address], [place] [id number] Phone Unavailable Care Team Providers Care Certified Real Estate Appraiser Name Role Phone Jose Kapoor, Andre Unavailable [...] Active Menopausal symptoms (627.2, N95.1) Status: Active Nocturia (788.43, R35.1) Status: Active Medications Name Dates Details Neurontin 800 MG Oral Tablet * Started 24-Feb-2013 ActiveClobetasol Propionate 0.05 % External Cream APPLY SPARINGLY TO AFFECTED AREA(S) TWICE DAILY * Quantity: 1 Refills: 1 Kasie Garcia M.D.* Started 24-Jul-2014 Ajmdsz70 GM Tube MetFORMIN HCl - 500 MG Oral Tablet TAKE 2 TABLET TWICE DAILY. DX 250 * Quantity: 120 Refills: 3 Kasie Garcia M.D.* Started 04-Jan-2015 ActiveJanuvia 100 MG Oral Tablet TAKE 1 TABLET BY MOUTH DAILY DX 250 * Quantity: 30 Refills: 3 Kasie Garcia M.D.* Started 04-Jan-2015 ActiveAccu-Chek FastClix Lancets Miscellaneous TEST ONCE DAILY AND NEEDED. DX 250.02 * Quantity: 1 Refills: 2 Kasie Garcia M.D.* Started 17-Jan-2015 Nfmrxm370 Miscellaneous Box Accu-Chek SmartView In Vitro Strip TEST ONCE DAILY. 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: Resolved Procedures Procedure Dates Details History of Hysterectomy History of Knee Arthroscopy Urinalysis, Reflex to Microscopic or Culture PRN 8005 Ordered:15-Feb-2015 Immunization Name Dates Details Zoster (Zostavax) Comments: Approx [id number] Tetanus-Diphtheria Toxoids Td 2-2 LF/0.5ML Intramuscular Suspension Comments: Approx [id number] Influenza Comments: Approx [id number] Influenza Lot #: [id number] Administered on:31-Aug-2013 Family History Mother* Name Dates Details Family history of diabetes mellitus (V18.0, Z83.3) Status: Active Social History Name Dates Details Smoking Status* Former smoker Vital Signs Date Test Result Details 15-Feb-2015 10:03 BP Systolic 136 mm[Hg] Status: BP Diastolic 64 mm[Hg] Status: Heart Rate 63 /min Status: Weight 196.25 lb Status: O2 SAT 99 % Status: Body Mass Index Calculated 31.68 kg/m2 Status: Body Surface Area Calculated 1.98 m2 Status: Results Date Description Value Details Results not documented Plan of Care Planned Observations* Name Dates Details Planned Goals not documented Goal Planned Encounters* Appointment; Provider: Kasie Garcia On 09:00 * Appointment; Provider: Javier Jacobson On 18-Mar-2015 08:45 Instructions * Instructions not documented Encounters Appointment; [...]
--- OUTSIDE RECORDS SUMMARY | 2017-01-28 05:35 | XMS REPORT | Referral Summary ---
Author Author [facility], [facility] Care Organization [facility] Address Unknown Phone Unavailable Care Team Providers Care Adult Live In Caregiver Name Role Phone Chelsey Yarbrough Primary Care Physician [phone] Encounter Date(s): 07/27/16 - 07/27/16 [facility] [address] [place] [id number]- Discharge Diagnosis: Bronchitis Discharge Disposition: 01-Home or Self Care Attending Physician: Jb Hanson PA-C Admitting Physician: Jb Hnason PA-C Vital Signs Most recent to 1 oldest [Reference Range]: Temperature Tympanic 36.6 degC [36.6-38.1 degC] (07/27/16 4:00 PM) Apical Heart Rate 106 bpm [60-100 bpm] *HI* (07/27/16 4:00 PM) Blood Pressure 124/82 mmHg [90-140/60-90 mmHg] (07/27/16 4:00 PM) SpO2 94 % (07/27/16 4:00 PM) Problem List Condition Effective Dates Status Health Status Informant Diabetes(Confirmed) Active Allergies, Adverse Reactions, Alerts No Known Allergies Medications albuterol CFC free 90 mcg/inh inhalation aerosol 2 puffs, Inhalation, q4hr, as needed for wheezing, # 18 g, 0 Refill(s), Pharmacy : [facility] [id number] Start Date: 07/20/16 Status: Ordered codeine-guaiFENesin 10 mg-100 mg/5 mL oral syrup 5 mL, Oral, q6hr, as needed for cough and congestion, use at bedtime if going to work or driving, X 7 days, # 120 mL, 0 Refill(s) Start Date: 07/27/16 Stop Date: 08/03/16 Status: Ordered estradiol 1 mg oral tablet 1 mg 1 tabs, Oral, Daily, # 30 tabs, 0 Refill(s) Start Date: 07/27/16 Status: Ordered gabapentin Oral, 0 Refill(s) Start Date: 07/20/16 Status: Ordered Januvia Oral, Daily, 0 Refill(s) Start Date: 07/20/16 Status: Ordered metFORMIN Oral, 0 Refill(s) Start Date: 07/20/16 Status: Ordered Results No data available for this section Immunizations No data available for this section Procedures Procedure Date Related Diagnosis Body Site Arthroscopy of knee with meniscus repair1 H/O: hysterectomy 1bilateral Social History Social History Type Response Smoking Status Current every day smoker; Type: Cigarettes; Tobacco use per day: 1/2 pack or more Assessment and Plan Extracted from: Title: cough Author: Jb Hanson PA-C Date: 07/27/16 Assessment/Plan Bronchitis Clinical andreportedimprovement. Discussed residual cough. 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 Continue cxcj-shn-ndceqyx cough remediesduring the day. Tylenol/ Ibuprofen as needed for fever or pain. Recommend supportive care. Rest. Practice good hand hygiene. Increase fluids. FU with PCP if not improving, worsening symptoms, or as needed. Questions were answered. Patient verbalized understanding. Patient left in stable condition.
--- OUTSIDE RECORDS SUMMARY | 2017-01-28 05:35 | XMS REPORT | Summary of Care ---
Author Author Phu Yarbrough Organization Unknown Address [address] [place], [place] [phone] Phone Unavailable Care Team Providers Care Player Manager Name Role Phone Phu Yarbrough Unavailable [...] Start 26-Jun-2016 Active 12 GM Inhaler Glimepiride 1 MG Oral Tablet TAKE 1 TABLET DAILY WITH BREAKFAST. * Quantity: 30 Refills: 3 Phu Yarbrough [...] of Knee Arthroscopy HEMOGLOBIN A1C 3507 Ordered: 07-Aug-2016 Immunization Name Dates Details Zoster (Zostavax) Comments: Approx [id number] Tetanus-Diphtheria Toxoids Td 2-2 LF/0.5ML Intramuscular Suspension Comments: Approx [id number] Influenza Comments: Approx [id number] Influenza Lot #: [id number] on: 31-Aug-2013 Prevnar 13 Intramuscular Suspension Lot #: [id number] on: 15-Feb-2015 Family History Name Dates Details [...] >60 ml/min Range: >60 EST GFR, NON-AFR HAITIAN >60 ml/min Range: >60 Comments: EST GFR [...] infants and children <2 years of age----- 10:24 HEMOGLOBIN A1C 3507 Comments: Fastin hours Hemoglobin A1C 8.0 % ESTIMATED AVG. GLUCOSE 183 Plan of Care Name Dates Details Planned Observations Planned Goals not documented Instructions Name Dates Details Instructions not documented [...]
--- OUTSIDE RECORDS SUMMARY | 2017-01-28 05:35 | XMS REPORT | Summary of Care ---
Author Author Phu Yarbrough Organization Unknown Address [address] [place], [place] [phone] Phone Unavailable Care Team Providers Care Industrial Hire Sales Assistant Name Role Phone Phu Yarbrough Unavailable Unavailable [...] Name Dates Details Zoster (Zostavax) Comments: Approx [id number] Tetanus-Diphtheria Toxoids Td 2-2 LF/0.5ML Intramuscular Suspension Comments: Approx [id number] Influenza Comments: Approx [id number] Influenza Lot #: [id number] on: 31-Aug-2013 Prevnar 13 Intramuscular Suspension Lot #: [id number] on: 15-Feb-2015 Family History Name Dates Details Family history of diabetes mellitus (V18.0, Z83.3) Status: Active Social History Name Dates Details - Status: Name Dates Details Former smoker Vital Signs Date Test Result Details No Known Vitals to report Results Date Description Value Details Results not documented Plan of Care Name Dates Details Planned Observations HEMOGLOBIN A1C 3507 On 27-Oct-2016 Intent Planned Goals not documented Planned Encounters Appointment; Provider: Phu Yarbrough On 11-Nov-2016 11:00 Interventions Provided Medication Changes* Acyclovir 800 MG Oral Tablet - Stop * Gabapentin 400 MG Oral Capsule - Renew * Glimepiride 1 MG Oral Tablet - Start Instructions Name Dates Details Instructions [...]
--- OUTSIDE RECORDS SUMMARY | 2017-01-28 05:36 | XMS REPORT | Summary of Care ---
Author Author Phu Yarbrough Organization Unknown Address [address] [place], [place] [phone] Phone Unavailable Care Team Providers Care Urgent Care Physician Assistant Name Role Phone Phu Yarbrough Unavailable [...] [address] * Start 24-Feb-2013 Active Clobetasol Propionate 0.05 % External Cream APPLY SPARINGLY TO AFFECTED AREA(S) TWICE DAILY * Quantity: 1 Refills: 1 Jose Kapoor, Kasie Powell * Start 24-Jul-2014 Active 30 GM Tube MetFORMIN HCl - 1000 MG Oral Tablet TAKE 1 TABLET TWICE DAILY WITH MEALS. * Quantity: 180 Refills: 0 Phu Yarbrough * Start 04-Jan-2015 Active Accu-Chek FastClix Lancets Miscellaneous TEST ONCE DAILY AND NEEDED. DX 250.02 * Quantity: 1 Refills: 2 Jose Kapoor, Kasie Powell * Start 17-Jan-2015 Active 102 Miscellaneous Box Accu-Chek SmartView In Vitro Strip TEST ONCE DAILY. AND NEEDED DX 250.02 * Quantity: 1 Refills: 2 Jose Kapoor, Kasie Powell * Start 17-Jan-2015 Active 100 Strip Box TraMADol HCl - 50 MG Oral Tablet TAKE 1 TABLET BY MOUTH EVERY 4 TO 6 HOURS NEEDED FOR PAIN * Quantity: 80 Refills: 0 Phu Yarbrough * Start 17-Sep-2016 Active Glimepiride 2 MG Oral Tablet TAKE 1 TABLET DAILY DIRECTED. * Quantity: 30 Refills: 3 [address] * Start 07-Aug-2016 Active Allergies and Adverse [...] Name Dates Details Zoster (Zostavax) Comments: Approx [id number] Tetanus-Diphtheria Toxoids Td 2-2 LF/0.5ML Intramuscular Suspension Comments: Approx [id number] Influenza Comments: Approx [id number] Influenza Lot #: [id number] on: 31-Aug-2013 Prevnar 13 Intramuscular Suspension Lot #: [id number] on: 15-Feb-2015 Family History Name Dates Details Family history of diabetes mellitus (V18.0, Z83.3) Status: Active Social History Name Dates Details - Status: Name Dates Details Former smoker Vital Signs Date Test Result Details 08-Jan-2017 11:49 BP Systolic 130 mm[Hg] Status: Comments: Location: ; Position: BP Diastolic 68 mm[Hg] Status: Comments: Location: ; Position: Heart Rate 100 /min Status: Comments: Location: ; Height 66 in Status: Weight 200.25 lb Status: Physical Findings 95 Status: Comments: O2 Saturation Body Mass Index Calculated 32.32 kg/m2 Status: Body Surface Area Calculated 2 m2 Status: Results Date Description Value Details 08-Jan-2017 09:50 [...] 0.0-0.2 10:08 ECG/ EKG Preop Electro CardioGram 10:10 XRay CHEST-PA & LAT Comments: Exam [...] >60 ml/min Range: >60 EST GFR, NON-AFR [place] >60 ml/min Range: >60 Comments: EST GFR [...] Planned Encounters Appointment; Provider: Phu Yarbrough On 05-Mar-2017 11:45 Instructions Name Dates Details Instructions not documented [...]
--- OUTSIDE RECORDS SUMMARY | 2017-01-28 05:36 | XMS REPORT | Summary of Care ---
Author Author Phu Yarbrough Organization Unknown Address [address] [place], [place] [address] Phone Unavailable Care Team Providers Care Day Treatment Clinician/Art Therapist Name Role Phone Phu Yarbrough Unavailable Unavailable [...] ONCE DAILY Quantity: 60 Phu Yarbrough * Start 24-Feb-2013 Active Estradiol 0.5 MG Oral Tablet TAKE 1 TABLET BY MOUTH DAILY * Quantity: 90 Refills: 3 Kasie Garcia M.D. * Start Active Clobetasol Propionate 0.05 % [...] CBC w/ Auto Diff 7150 Ordered: 26-Jun-2016 XRay RIBS-Right Ordered: 26-Jun-2016 Immunization Name Dates Details Zoster (Zostavax) Comments: Approx [id number] Tetanus-Diphtheria Toxoids Td 2-2 LF/0.5ML Intramuscular Suspension Comments: Approx [id number] Influenza Comments: Approx [id number] Influenza Lot #: [id number] on: 31-Aug-2013 Prevnar 13 Intramuscular Suspension Lot #: [id number] on: 15-Feb-2015 Family History Name Dates Details Family history of diabetes mellitus (V18.0, Z83.3) Status: Active Social History Name Dates Details - Status: Name Dates Details Former smoker Vital Signs Date Test Result Details 26-Jun-2016 12:02 BP Systolic 140 mm[Hg] Status: Comments: Location: ; Position: BP Diastolic 78 mm[Hg] Status: Comments: Location: ; Position: Heart Rate 67 /min Status: Comments: Location: ; Weight 188.25 lb Status: Physical Findings 95 Status: Comments: O2 Saturation Body Mass Index Calculated 30.38 kg/m2 Status: Body Surface Area Calculated 1.95 m2 Status: Results Date Description Value Details 10-Jun-2016 18:03 Diabetic Eye Exam No diabetic retinopathy Range: 0 Plan of Care Name Dates Details Planned Observations CBC w/ Auto Diff 7150 On 07-Aug-2016 Intent LIPID PROFILE 1184 On 07-Aug-2016 Intent THYROID STIM. HORMONE 3602 On 07-Aug-2016 Intent Planned Goals not documented Planned Encounters Appointment; Provider: Phu Yarbrough On 07-Aug-2016 11:00 Interventions Provided Medication Changes* Flovent HFA 110 MCG/ACT Inhalation Aerosol - Start Labs/Procedures/Imaging* XRay RIBS-Right; To be Done: 26 Jun 2016 Instructions Name Dates Details Instructions not documented [...] documented On 04-Jan-2015 14:45 Appointment; Kasie Garcia M.D. Encounter Diagnosis: Problem not documented On 24-Jul-2014 13:45
--- OUTSIDE RECORDS SUMMARY | 2017-01-28 05:36 | XMS REPORT | Summary of Care ---
Author Author Phu Yarbrough Organization Unknown Address [address] [place], [place] [phone] Phone Unavailable Care Team Providers Care Instrument Maker And Repairer Name Role Phone Phu Yarbrough Unavailable Unavailable Adnre Garcia M.D. Unavailable Unavailable Sawyer Yarbrough Unavailable [...] Name Dates Details Zoster (Zostavax) Comments: Approx [id number] Tetanus-Diphtheria Toxoids Td 2-2 LF/0.5ML Intramuscular Suspension Comments: Approx [id number] Influenza Comments: Approx [id number] Influenza Lot #: [id number] on: 31-Aug-2013 Prevnar 13 Intramuscular Suspension Lot #: [id number] on: 15-Feb-2015 Family History Name Dates Details Family history of diabetes mellitus (V18.0, Z83.3) Status: Active Social History Name Dates Details - Status: Name Dates Details Former smoker Vital Signs Date Test Result Details No Known Vitals to report Results Date Description Value Details 07-Aug-2016 09:18 [...] >60 ml/min Range: >60 EST GFR, NON-AFR FARO[place] >60 ml/min Range: >60 Comments: EST GFR [...] Provider: Phu Yarbrough On 07-Aug-2016 11:00 Instructions Name Dates Details Instructions not documented [...]
--- OUTSIDE RECORDS SUMMARY | 2017-01-28 05:36 | XMS REPORT | Summary of Care ---
Author Author Phu Yarbrough Organization Unknown Address [address] [place], [place] [phone] Phone Unavailable Care Team Providers Care Check Inspector Name Role Phone Phu Yarbrough Unavailable Unavailable [...] MOUTH DAILY * Quantity: 90 Refills: 3 Ksaie Garcia M.D. * Start Active Clobetasol Propionate [...] Name Dates Details Zoster (Zostavax) Comments: Approx [id number] Tetanus-Diphtheria Toxoids Td 2-2 LF/0.5ML Intramuscular Suspension Comments: Approx [id number] Influenza Comments: Approx [id number] Influenza Lot #: [id number] on: 31-Aug-2013 Prevnar 13 Intramuscular Suspension Lot #: [id number] on: 15-Feb-2015 Family History Name Dates Details [...] Eye Exam No diabetic retinopathy Range: 0 26-Jun-2016 14:46 XRay RIBS-Right Comments: Exam Date: 06/26/2016 12: 34Dictation Date: 06/26/2016 14:46 X RIBS UNILATERAL RT Plan of Care Name Dates Details Planned Observations Planned Goals not documented Planned Encounters Appointment; Provider: Phu Yarbrough On 07-Aug-2016 11:00 Interventions Provided Labs/Procedures/Imaging* XRay RIBS-Right; Done: [id number] 02:46PM Instructions Name Dates Details Instructions not documented Encounters Appointment; Puh Yarbrough Encounter Diagnosis: Problem not documented On 26-Jun-2016 11:45 Appointment; Phu Yarbrough Encounter Diagnosis: Problem not documented On 10:15 Appointment; Puh Yarbrough Encounter Diagnosis: Problem not documented On [...]
--- OUTSIDE RECORDS SUMMARY | 2017-01-28 05:36 | XMS REPORT | Summary of Care ---
Author Author Kasie Garcia M.D. Organization Unknown Address [address], [place] [id number] Phone Unavailable Care Team Providers Care Cigar Head Puncher Name Role Phone Jose Kapoor, Andre Unavailable [...] Active Overactive bladder (596.51, N32.81) Status: Active Medications Name Dates Details Neurontin 800 MG Oral Tablet * Started 24-Feb-2013 ActiveClobetasol Propionate 0.05 % External Cream APPLY SPARINGLY TO AFFECTED AREA(S) TWICE DAILY * Quantity: 1 Refills: 1 Kasie Garcia M.D.* Started 24-Jul-2014 Wluyez30 GM Tube MetFORMIN HCl - 1000 MG [...] Refills: 2 Kasie Garcia M.D.* Started 17-Jan-2015 [id number] Miscellaneous Box Accu-Chek SmartView In Vitro Strip TEST ONCE DAILY. AND NEEDED DX 250.02 * Quantity: 1 Refills: 2 Kasie Garcia M.D.* Started 17-Jan-2015 [id number] Strip Box Allergies and Adverse Reactions Name Dates Details No Known Drug Allergies Status: Active Past Medical History Name Dates Details History of Benign colon polyp (211.3, K63.5) Status: Resolved History of Intercostal neuritis (353.8, G54.8) Status: Resolved Procedures Procedure Dates Details History of Hysterectomy History of Knee Arthroscopy HEMOGLOBIN A1C 3507 Ordered:15-Feb-2015 Immunization Name Dates Details Zoster (Zostavax) Comments: Approx [id number] Tetanus-Diphtheria Toxoids Td 2-2 LF/0.5ML Intramuscular Suspension Comments: Approx [id number] Influenza Comments: Approx [id number] Influenza Lot #: [id number] Administered on:31-Aug-2013 Prevnar 13 Intramuscular Suspension Lot #: [id number] Administered on:15-Feb-2015 Family History Mother* Name Dates [...] m2 Status: Results Date Description Value Details 15-Feb-2015 11:20 Urinalysis, Reflex to Microscopic or Culture PRN 8005 pH 5.5 (Better) Range: 5.0-7.5 SP GRAVITY >=1.030 (Abnormal) Range: 1.010-1.030 APPEARANCE CLEAR (Better) Range: Clear COLOR DKYELLOW (Abnormal) Range: Straw-Yellow PROTEIN NEGATIVE mg/dL (Better) Range: Negative-Trace GLUCOSE NEGATIVE mg/dL (Better) Range: Negative KETONE TRACE mg/dL (Abnormal) Range: Negative BILIRUB SMALL (Abnormal) Range: Negative BLOOD NEGATIVE (Better) Range: Negative UROBIL 0.2 EU/dL (Better) Range: 0.2-1.0 NITRITE NEGATIVE (Better) Range: Negative LEUK NEGATIVE (Better) Range: Negative Plan of Care Planned Observations* Name Dates [...]
--- OUTSIDE RECORDS SUMMARY | 2017-01-28 05:36 | XMS REPORT | Summary of Care ---
Author Author Phu Yarbrough Organization Unknown Address [address] [place], [place] [id number] Phone Unavailable Care Team Providers Care Cosmetics And Toiletries Salesperson Name Role Phone Phu Yarbrough Unavailable Unavailable [...] History of Hysterectomy History of Knee Arthroscopy ECG/ EKG Preop Pendin30-Nov-2016 HEMOGLOBIN A1C 3507 Ordered: 11-Nov-2016 BASIC METABOLIC PROFILE 1210 Ordered: 11-Nov-2016 Comprehensive Metabolic Panel 1212 Ordered: 30-Nov-2016 XRay CHEST-PA & LAT Ordered: 30-Nov-2016 Immunization Name Dates Details Zoster (Zostavax) Comments: Approx [id number] Tetanus-Diphtheria Toxoids Td 2-2 LF/0.5ML Intramuscular Suspension Comments: Approx [id number] Influenza Comments: Approx [id number] Influenza Lot #: [id number] on: 31-Aug-2013 Prevnar 13 Intramuscular Suspension Lot #: [id number] on: 15-Feb-2015 Family History Name Dates Details Family history of diabetes mellitus (V18.0, Z83.3) Status: Active Social History Name Dates Details - Status: Name Dates Details Former smoker Vital Signs Date Test Result Details No Known Vitals to report Results Date Description Value Details Results not documented Plan of Care Name Dates Details Planned Observations Comprehensive Metabolic Panel 1212 On 28-Dec-2016 Intent XRay CHEST-PA & LAT On 08-Jan-2017 Intent ECG/ EKG Preop On 08-Jan-2017 Intent Planned Goals not documented Planned Encounters Appointment; Provider: Phu Yarbrough On 17-Feb-2017 10:15 Appointment; Provider: Phu Yarbrough On 08-Jan-2017 11:45 Instructions Name Dates Details Instructions not [...]
--- OUTSIDE RECORDS SUMMARY | 2017-01-28 05:36 | XMS REPORT | Summary of Care ---
Author Author Kasie Garcia M.D. Organization Unknown Address [address] [place], [place] [phone] Phone Unavailable Care Team Providers Care Client Server Programmer Name Role Phone Jose Kapoor, Andre Unavailable [...] Refills: 1 Kasie Garcia M.D.* Started 24-Jul-2014 [id number] GM Tube MetFORMIN HCl - 1000 MG [...] Refills: 2 Kasie Garcia M.D.* Started 17-Jan-2015 Cetkva028 Miscellaneous Box Accu-Chek SmartView In Vitro Strip TEST ONCE DAILY. AND NEEDED DX 250.02 * Quantity: 1 Refills: 2 Kasie Garcia M.D.* Started 17-Jan-2015 Dzlnhj164 Strip Box Allergies and Adverse Reactions Name Dates Details No Known Drug Allergies Status: Active Past Medical History Name Dates Details History of Benign colon polyp (211.3, K63.5) Status: Resolved History of Intercostal neuritis (353.8, G54.8) Status: Resolved Procedures Procedure Dates Details History of Hysterectomy History of Knee Arthroscopy Procedures not documented Immunization Name Dates Details Zoster (Zostavax) Comments: Approx [id number] Tetanus-Diphtheria Toxoids Td 2-2 LF/0.5ML Intramuscular Suspension Comments: Approx [id number] Influenza Comments: Approx [id number] Influenza Lot #: [id number] Administered on:31-Aug-2013 Prevnar 13 Intramuscular Suspension Lot #: [id number] Administered on:15-Feb-2015 Family History Mother* Name Dates [...]
--- OUTSIDE RECORDS SUMMARY | 2017-01-28 05:36 | XMS REPORT | Summary of Care ---
Author Author Kasie Garcia M.D. Organization Unknown Address [address], [place] [id number] Phone Unavailable Care Team Providers Care Esl Tutor Name Role Phone Jose Kaporo, Andre Unavailable [...] Active Eczema, dyshidrotic (705.81, L30.1) Status: Active Menopausal symptoms (627.2, N95.1) Status: Active Hypertension (401.9, I10) Status: Active Nocturia (788.43, R35.1) Status: Active Obesity (278.00, E66.9) Status: Active Overactive bladder (596.51, N32.81) Status: Active Diabetes mellitus (250.00, E11.9) Status: Active Osteoarthritis of knee (715.96, M17.9) Status: Active Granuloma annulare (695.89, L92.0) Status: Active Postmenopausal status (V49.81, Z78.0) Status: Active Benign colon polyp (211.3, K63.5) Status: Active Medications Name Dates Details Gabapentin [...] Refills: 1 Kasie Garcia M.D.* Started 24-Jul-2014 Wvfsxd49 GM Tube MetFORMIN HCl - 1000 MG [...] Refills: 2 Kasie Garcia M.D.* Started 17-Jan-2015 [id number] Miscellaneous Box Accu-Chek SmartView In Vitro Strip TEST ONCE DAILY. AND NEEDED DX 250.02 * Quantity: 1 Refills: 2 Kasie Garcia M.D.* Started 17-Jan-2015 Cexbdd523 Strip Box Allergies and Adverse Reactions Name Dates Details No Known Drug Allergies Status: Active Past Medical History Name Dates Details History of Intercostal neuritis (353.8, G54.8) Status: Resolved History of Type 2 diabetes mellitus, uncontrolled (250.02, E11.65) Status: Resolved Procedures Procedure Dates Details History of Hysterectomy History of Knee Arthroscopy Procedures not documented Immunization Name Dates Details Zoster (Zostavax) Comments: Approx [id number] Tetanus-Diphtheria Toxoids Td 2-2 LF/0.5ML Intramuscular Suspension Comments: Approx [id number] Influenza Comments: Approx [id number] Influenza Lot #: [id number] Administered on:31-Aug-2013 Prevnar 13 Intramuscular Suspension Lot #: [id number] Administered on:15-Feb-2015 Family History Mother* Name Dates [...] ml/min (Better) Range: >60 EST GFR, NON-AFR NAMIBIAN >60 ml/min (Better) Range: >60 Comments: EST GFR is reported in ml/min per 1.73 m2 of body surface area. For -[place], please multiple result by 1.2.----- BUN:CREATININE RATIO [...]
--- OUTSIDE RECORDS SUMMARY | 2017-01-28 05:36 | XMS REPORT | Summary of Care ---
Author Author Phu Yarbrough Organization Unknown Address [address] [place], [place] [phone] Phone Unavailable Care Team Providers Care Electric Distribution Engineer Name Role Phone Puh Yarbrough Unavailable Unavailable Andre Garcia M.D. Unavailable [...] 26-Jun-2016 THYROID STIM. HORMONE 3602 Ordered: 26-Jun-2016 Immunization Name Dates Details Zoster (Zostavax) Comments: Approx [id number] Tetanus-Diphtheria Toxoids Td 2-2 LF/0.5ML Intramuscular Suspension Comments: Approx [id number] Influenza Comments: Approx [id number] Influenza Lot #: [id number] on: 31-Aug-2013 Prevnar 13 Intramuscular Suspension Lot #: [id number] on: 15-Feb-2015 Family History Name Dates Details Family history of diabetes mellitus (V18.0, Z83.3) Status: Active Social History Name Dates Details - Status: Name Dates Details Former smoker Vital Signs Date Test Result Details No Known Vitals to report Results Date Description Value Details Results not documented Plan of Care Name Dates Details Planned Observations HEMOGLOBIN A1C 3507 On 27-Jul-2016 Intent BASIC METABOLIC PROFILE 1210 On 27-Jul-2016 Intent Planned Goals not documented Planned Encounters Appointment; Provider: Phu Yarbrough On 07-Aug-2016 11:00 Instructions Name Dates Details Instructions not documented Encounters Appointment; Kasie Garcia M.D. Encounter Diagnosis: Problem not documented On 14:45 Appointment; Javier Jacobson M.D. Encounter Diagnosis: Problem not documented On 13:30 Appointment; Kasie Garcia M.D. Encounter Diagnosis: Problem not documented On 15-Feb-2015 09:30 Appointment; Kasie Garcia M.D. Encounter Diagnosis: Problem not documented On 04-Jan-2015 14:45
--- OUTSIDE RECORDS SUMMARY | 2017-01-28 05:37 | XMS REPORT | Summary of Care ---
Author Author Phu Yarbrough Organization Unknown Address [address] [place], [place] [phone] Phone Unavailable Care Team Providers Care Ply Cutter Name Role Phone Phu Yarbrough Unavailable Unavailable [...] MOUTH DAILY * Quantity: 90 Refills: 3 Zneon Phu * Start Active Clobetasol Propionate 0.05 [...] Name Dates Details Zoster (Zostavax) Comments: Approx [id number] Tetanus-Diphtheria Toxoids Td 2-2 LF/0.5ML Intramuscular Suspension Comments: Approx [id number] Influenza Comments: Approx [id number] Influenza Lot #: [id number] on: 31-Aug-2013 Prevnar 13 Intramuscular Suspension Lot #: [id number] on: 15-Feb-2015 Family History Name Dates Details [...] m2 Status: Results Date Description Value Details 11-Nov-2016 10:11 HEMOGLOBIN A1C 3507 Comments: Fastin hours Hemoglobin A1C 7.0 % ESTIMATED AVG. GLUCOSE 154 Plan of Care Name Dates Details Planned Observations Planned Goals not documented Planned Encounters Appointment; Provider: Phu Yarbrough On 17-Feb-2017 10:15 Instructions Name Dates Details Instructions not documented [...]
--- OUTSIDE RECORDS SUMMARY | 2017-01-28 05:37 | XMS REPORT | Summary of Care ---
Author Author Phu Yarbrough Organization Unknown Address [address] [place], [place] [phone] Phone Unavailable Care Team Providers Care Cost Control Analyst Name Role Phone Phu Yarbrough Unavailable Unavailable [...] Active Shingles rash (053.9, B02.9) Status: Active Neuropathy, thoracic (radicular) (724.4, M54.14) [...] Refills: 1 Kasie Garcia M.D.* Started 24-Jul-2014 Smkxdp72 GM Tube MetFORMIN HCl - 1000 MG [...] Refills: 2 Kasie Garcia M.D.* Started 17-Jan-2015 Bptboi032 Miscellaneous Box Accu-Chek SmartView In Vitro Strip TEST ONCE DAILY. AND NEEDED DX 250.02 * Quantity: 1 Refills: 2 Kasie Garcia M.D.* Started 17-Jan-2015 Txhhcc616 Strip Box Acyclovir 800 MG Oral Tablet take 1 tablet 5 times daily for 7 days * Quantity: 35 Refills: 0 Phu Yarbrough * Started ActiveTraMADol HCl - 50 MG Oral Tablet TAKE 1-2 TABLETS EVERY 4- 6 HOURS NEEDED FOR PAIN. * Quantity: 80 Refills: 0 Phu Yarbrough * Started Active [...] Name Dates Details Zoster (Zostavax) Comments: Approx [id number] Tetanus-Diphtheria Toxoids Td 2-2 LF/0.5ML Intramuscular Suspension Comments: Approx [id number] Influenza Comments: Approx [id number] Influenza Lot #: [id number] Administered on:31-Aug-2013 Prevnar 13 Intramuscular Suspension Lot #: [id number] Administered on:15-Feb-2015 Family History Mother* Name Dates Details Family history of diabetes mellitus (V18.0, Z83.3) Status: Active Social History Name Dates Details Smoking Status* Former smoker Vital Signs Date Test Result Details 10:21 BP Systolic 120 mm[Hg] Status: BP Diastolic 78 mm[Hg] Status: Heart Rate 78 /min Status: Height 66 in Status: Weight 194.6 lb Status: O2 SAT 98 % Status: Body Mass Index Calculated 31.41 kg/m2 Status: Body Surface Area Calculated 1.98 [...]
[2017-01-28] MEDS ORDERED: METOCLOPRAMIDE 10mg/2ml INJECTION IV ONE (06:00)
[2017-01-28] MEDS ORDERED: LIDOCAINE 1% (10mg/ml) 2ml SDV SQ ONE (06:00)
[2017-01-28] MEDS ORDERED: CEFAZOLIN 2 GM VIAL IV ONE (06:00)
[2017-01-28] MEDS ORDERED: FAMOTIDINE 20mg IVPB 50 ML IV ONE (06:00)
[2017-01-28] MEDS ORDERED: TRANEXAMIC ACID 1,000 MG in NORMAL SALINE 100 ML IV ONE ×2 (06:00→07:00)
[2017-01-28] MEDS ORDERED: CELECOXIB 200 MG CAPSULE PO ONE (06:00)
[2017-01-28 06:34] LABS: ANION GAP 12 MEQ/L (5-15); BUN/CREATININE RATIO 27 RATIO (6-26); CALCIUM 9.1 MG/DL (8.4-10.2); CHLORIDE 109 MEQ/L (98-107); CO2 - CARBON DIOXIDE 23 MEQ/L (22-30); CREATININE 0.6 MG/DL (0.7-1.2); GLOMERULAR FILTRATION RATE 100; GLUCOSE 140 MG/DL (65-110); SODIUM 144 MEQ/L (134-144)
[2017-01-28] MEDS ORDERED: VANCOMYCIN 1 GRAM INJECTION ONE (06:41)
[2017-01-28] MEDS ORDERED: MIDAZOLAM 2mg/2ml INJECTION IV ONE (06:45)
--- NOTE | 2017-01-28 06:48 | ANESPREOP ---
Anesthesia Record Date and Time DATE: 01/28/17 TIME: 06:31 Proposed Surgical Procedure LT TKA NPO since: 199901/27/17 Allergies: Coded Allergies: codeine (Verified Adverse Reaction, Unknown, DIZZINESS, N/V, 01/06/17) propoxyphene (Verified Adverse Reaction, Unknown, DIZZINESS, N/V, 01/06/17) Ht/Wt/BMI Height: 5 ' 6.00 " Weight: 92.400 kg BMI: 32.9 kg/m2 Vital Signs Date Time Temp Pulse Resp B/P Pulse Ox O2 Delivery O2 Flow Rate FiO2 01/28/17 06:21 61 16 01/28/17 05:47 98.1 154/95 90 Room Air Medications Inpatient Medications Current Medications Medications (Trade) Dose Ordered Sig/Tarik Start Time Stop Time Status Last Admin Dose Admin Lactated Ringer's (Lactated Ringers) 1,000 ml @ 50 mls/hr Q20H 01/28/17 07:00 Aspirin (Aspir 81) 81 Mg Tablet.dr, 1 TAB PO DAILY, (Reported) Last Taken: on 01/20/17 Cholecalciferol (Vitamin D3) 1,000 Unit Tablet, 1 TAB PO DAILY, (Reported) Last Taken: on 07/31/16 Estradiol (Estrace) 0.5 Mg Tablet, 1 TAB PO DAILY PRN for HotFlash, (Reported) Last Taken: on Unknown Date & Time Gabapentin (Gabapentin) 300 Mg Capsule, 1 CAP PO DAILY PRN for NervePain, (Reported) Last Taken: on 01/27/17 1600 Glimepiride (Glimepiride) 1 Mg Tablet, 2 TAB PO DAILY, (Reported) Last Taken: on 01/27/17 0700 Metformin HCl (Metformin HCl) 1,000 Mg Tablet, 1 TAB PO BIDWM, (Reported) Take one tablet, by mouth, twice daily with meals Last Taken: on 01/27/171999 Multivitamin (Multi-Day Vitamins) 1 Each Tablet , 1 TAB PO DAILY, (Reported) Last Taken: on 01/25/17 Naproxen (Naproxen) 500 Mg Tablet, 1 TAB PO TIDWM, (Reported) Last Taken: on 01/20/17 Tramadol HCl (Tramadol HCl) 50 Mg Tablet, 50-100 MG PO Q4H PRN for PAIN, (Reported) Take 1 tablet, by mouth, every 4 hours. Last Taken: on 01/27/17 1400 Vitamin E (Dl,Tocopheryl Acet) (Vitamin E) 400 Unit Capsule, 400 UNIT PO DAILY, (Reported) Last Taken: on 11/30/16 Currently on Beta Krissy: No Medical/Surgical History Anesthesia PMH: Reports: *Diabetes (TYPE II - PO meds), Anesthesia Reactions (N /V), Arthritis, Bronchitis (Jul 2016), COPD (DENIES), Hiatal Hernia, Obesity, Denies: Cancer, Glaucoma, Malignant Hyperthermia, Sleep Apnea Smoking Status: Former smoker (quit 1 month ago) Has pt. smoked today?: No # of Packs per Day: 1 # of Years: 50 Substance Use Type: does not use Alcohol Intake: rarely HX of Last Menstrual Period: HYST Past Surgical History Orthopedic Surgeries: Yes - RT & LT KNEE SCOPES Abdominal Surgeries: Genitourinary Surgeries: Cardiac Surgeries: Endocrine Surgeries: Reproductive Surgeries: Yes - VAG HYST Neurological Surgeries: Ear Surgeries: Nose Surgeries: Throat Surgeries: Other Surgeries: Yes - RT & LT KNEE SCOPES Anesthesia Adverse Reactions: FOUND nausea and vomiting Hx of Motion Sickness: No Physical Exam Respiratory: Other (coarse) Cardiovascular: FOUND Regular rate, rhythm, FOUND No murmur Airway Assessment Mallampati Score: II TMD: 3 Fingerbreadths Neck Extension: Good Teeth: Chipped Teeth/Crowns Overall Assessment: No Airway Concerns ASA: 3 Plan Regional: Spinal Peripheral Nerve Block: Saphenous - LT Discussion Discussed risks/options/alternatives of anesthesia and questions answered. Patient consents. Nursing pain assessment noted. Attestation Statement Prior to the delivery of any anesthetic medication, I examined the patient, developed the plan, obtained the patient's consent and discussed the risk and benefits of the procedure with the patient/guardian. LILY SANTAMARIA TRAFFIC AND TRANSPORT PLANNER STUDENT Jan 28, 2017 06:34
--- NOTE | 2017-01-28 06:57 | ANESPD ---
Peripheral Nerve Blockade Physician: Cheikh Thompson MD Date: 01/28/17 Surgical Procedure: Lt TKA Discussion Discussed risks/options/alternatives of anesthesia and questions answered. Patient consents. Nursing pain assessment noted. Block Start: 06:51 Block Stop: 06:54 Block Employed: Adductor Canal Indication: post-operative pain Approach: left side confirmed Position: supine Patient: Consent, risks/benefits discussed, Informed, post block act. discussed Monitors: EKG, SpO2, NIBP IV Sedation: Yes Sedation: sedate w/meaningful contact Midazolam (mg): 2 Initial Vital Signs First Documented Vital Signs Date Time Temp Pulse Resp B/P Pulse Ox O2 Delivery O2 Flow Rate FiO2 01/28/17 05:47 98.1 65 13 154/95 90 Room Air Post Vital Signs Vital Signs Date Time Temp Pulse Resp B/P Pulse Ox O2 Delivery O2 Flow Rate FiO2 01/28/17 06:47 16 01/28/17 06:21 61 01/28/17 05:47 98.1 154/95 90 Room Air Initial Pain Score: 4 Post Block Score: 1 Prep: chlorhexadine/ETOH Ultrasound Used?: Yes (see ultrasound image in EMR) Injectate Ropivacaine (%): 0.5 Ropivacaine (mL): 20 Was Epi 1:200,000 Used?: No Injection Injection made incrementally with constant monitoring and aspiration every [5] ml. LILY SANTAMARIA PORTAL ADMINISTRATOR STUDENT Jan 28, 2017 06:57
[2017-01-28] MEDS ORDERED: LR 1,000 ML IV SCH (07:00)
[2017-01-28] MEDS ORDERED: ACETAMINOPHEN 500 MG TABLET PO ONE (07:00)
[2017-01-28] MEDS ORDERED: NOZIN NASAL SWAB NS ONE ×2 (07:00→08:45)
[2017-01-28] MEDS ORDERED: ONDANSETRON 4mg/2ml INJECTION IV ONE (07:00)
[2017-01-28] MEDS ORDERED: PROPOFOL 500mg 50 ML IV ONE ×2 (07:04→08:06)
[2017-01-28] MEDS ORDERED: ROPIVACAINE 0.5% (5mg/ml) 30ml INJ ONE (07:13)
[2017-01-28] MEDS ORDERED: GLYCOPYRROLATE 0.4mg/2ml INJECTION ONE (07:13)
[2017-01-28] MEDS ORDERED: INSULIN LISPRO 100 UNIT/ML SQ PRN (08:45)
[2017-01-28] MEDS ORDERED: DiphenhydrAMINE 25 MG CAPSULE PO PRN (08:45)
[2017-01-28] MEDS ORDERED: LORAZEPAM 1 MG TABLET PO PRN (08:45)
[2017-01-28] MEDS ORDERED: ONDANSETRON 4mg/2ml INJECTION IV PRN ×2 (08:45)
[2017-01-28] MEDS ORDERED: DiphenhydrAMINE 50 MG/ML INJECTION IV PRN (08:45)
[2017-01-28] MEDS ORDERED: SENNOSIDES 8.6 MG TABLET PO PRN (08:45)
[2017-01-28] MEDS ORDERED: HYDROMORPHONE 2mg/ml INJECTION IV PRN (08:45)
[2017-01-28] MEDS ORDERED: PRN ORDERS MC (08:45)
[2017-01-28] MEDS ORDERED: METOCLOPRAMIDE 10mg/2ml INJECTION IV PRN (08:45)
--- NOTE | 2017-01-28 08:45 | PDOPERATE ---
Operative Report Date of Operation 01/28/17 Side: Left Preoperative Diagnosis: knee primary DJD Postoperative Diagnosis Same as preoperative diagnosis. Operation/Procedure: total knee arthroplasty (left) Surgeon Shamar Thompson MD Personal Financial Planner DARLIN Upton Complications None. Regional Block: Spinal Estimated Blood Loss See Anesthesia Record. Fluids Please See Anesthesia Record. Description of Operation Ms. Jackson and her left knee were identified and marked in the the preoperative holding area. She was then brought back to the operating suite and proper anesthesia was administered. She was then positioned supine on the operating table. The left lower extremity was then prepped and draped in my normal sterile fashion. Timeout was performed with all operating room personnel. The leg was exsanguinated and tourniquet inflated 250 mmHg. A standard anterior incision followed by a medial parapatellar approach was utilized. She had severe disease in the medial compartment and less so on the lateral compartment. A distal femoral cut was made in 5 of valgus using intramedullary guide. The femur was sized at a 4 and rotation set using the epicondylar axis. Distal femoral cuts were performed. The tourniquet was then let down. A proximal tibial cut was made using extramedullary guide. Remaining osteophytes and meniscus were removed. Gaps were checked and they were well balanced and rectangular. Trial components were placed with a 9 mm spacer. This allowed for full range of motion and the patella tracked well. The knee was stable throughout range of motion. The patella was resurfaced with the knee in extension to a size 32. The tibia rotation was then marked and the tibia stamped at the proper rotation at a size 3. The bone was prepared for cementing and all components cemented into place and allowed to cure in extension. Betadine solution was used for 3 minutes during the curing period and then fully irrigated out with 1 L of normal saline. Hemostasis obtained with electrocautery. After the cement had cured the knee was taken through range of motion check for balance and stability which were good. Vancomycin powder was placed into the wound. The arthrotomy was closed with #1 Vicryl. The remainder of the wound was then closed by my podiatric assistant utilizing 2-0 vycral in the subcutaneous tissue. Zipline was used to close the skin. After closure the patient will be transferred to the recovery room under the care of anesthesia. RUY THOMPSON MD Jan 28, 2017 08:45
[2017-01-28] MEDS: VITAMIN E 400 UNIT CAPSULE PO SCH (09:00)
[2017-01-28] MEDS: ACETAMINOPHEN 325 MG TABLET PO SCH ×4 (09:00→21:12)
[2017-01-28] MEDS: POLYETHYL.GLYCOL 3350 PACKET 17gm PO SCH (09:00)
[2017-01-28] MEDS: CHOLECALCIFEROL 1,000 UNIT TABLET PO SCH (09:00)
[2017-01-28] MEDS ORDERED: EPINEPHRINE 0.25 MG, BUPIVACAINE 0.25% 75 MG, MORPHINE SULFATE 15 MG, KETOROLAC 60 MG i... INJ ONE ×5 (09:30)
--- NOTE | 2017-01-28 09:58 | ANESPO ---
Post-Op Note Date 01/28/17 Time: 09:49 Status Pt Participated in Evaluation: Pt participated in person Vital Signs Date Time Temp Pulse Resp B/P Pulse Ox O2 Delivery O2 Flow Rate FiO2 01/28/17 09:40 58 18 134/76 91 Room Air 01/28/17 09:16 2.00 01/28/17 08:46 97.0 Respiratory Function: Airway patent, Regular respirations Cardiovascular Function: Regular pulse Mental Status: Alert/oriented Pain Level Intensity: 0 Unable to Assess Pain Due To: Pt Sleeping Hydration: Taking po fluids Complications during Recovery None apparent Follow-Up Instructions Instructions Per Surgeon WALT SANTAMARIA CRNA Jan 28, 2017 09:52
[2017-01-28] MEDS: NORMAL SALINE 1,000 ML IV SCH (10:16)
--- NOTE | 2017-01-28 10:40 | DI ---
Indication: ITS.REASON: POSTOP left knee replacement PROCEDURE: KNEE LEFT 2 VIEW: Encounter: Initial Comparison: January 20, 2016 Findings: Postoperative changes of left total knee replacement are seen. There is expected postoperative subcutaneous gas. No evidence of hardware failure or acute fracture. No retained radiopaque surgical instruments or sponges. Overlying material causing artifact. Impression: New left total knee prosthesis without evidence of immediate complication. .
[2017-01-28] MEDS: TRAMADOL 50 MG TABLET PO PRN ×3 (11:13→20:06)
[2017-01-28] MEDS: NOZIN NASAL SWAB NS SCH ×2 (14:07→21:11)
[2017-01-28] MEDS: CEFAZOLIN 2 G in NORMAL SALINE 100 ML IV SCH ×2 (15:39→23:35)
--- NOTE | 2017-01-28 19:04 | NUR ---
SHIFT SUMMARY PT CAME BACK FORM SURGERY AND WAS A&O X3. PT HAS BEEN PLEASANT AND COOPERATIVE WITH ALL CARES. PT DID HAVE SOME PAIN AND WAS GIVEN 50MG TRAMADOL AND 650MG TYLENOL PT STATED SHE WAS STILL HAVING PAIN AND WAS GIVEN THE OTHER 50MG PER THE PRN ORDER. THE TYLENOL WAS SCHEDULED. PT HAS STATED THE PAIN IS CONTROLLED. PT HAS BEEN UP WITH PT AND TO THE BATHROOM WITH STAFF X2 SINCE ARRIVING TO THE UNIT. PT IV IS IN L HAND AND RUNNING AT 80ML/NACL. PT IS ON 2L /NC PT IS ON CONTINUOUS PULSE OX. PT IS EATING AND DRINKING A REGULAR DIET AT THIS TIME. WILL CONTINUE TO MONITOR PT TILL END OF SHIFT REPORT.
[2017-01-28] MEDS: ASPIRIN *EC* 325mg TABLET PO SCH (21:11)
[2017-01-28] MEDS ORDERED: SENNOSIDES 8.6 MG TABLET PO SCH (22:00)
[2017-01-29] MEDS: NORMAL SALINE 1,000 ML IV SCH ×2 (01:14→10:31)
[2017-01-29] MEDS: TRAMADOL 50 MG TABLET PO PRN ×2 (03:15→08:31)
[2017-01-29 04:50] VITALS: BP 116/73; PULSE 59; RESP 16; TEMP 96.7; O2SAT 95
--- NOTE | 2017-01-29 05:23 | NUR ---
SHIFT SUMMARY PATIENT IS ALERT AND ORIENTED THIS SHIFT. VITAL SIGNS HAVE BEEN STABLE ON 3L NC. ATTEMPTED TO WEAN DOWN O2, BUT PATIENT DID NOT MAINTAIN ADEQUATE O2 SAT. PATIENT HAS REPORTED NO NAUSEA OR VOMITING THIS SHIFT. REPORTS OF PAIN HAVE BEEN MINIMAL, AND PAIN HAS BEEN WELL CONTROLLED WITH AVAILABLE PO MEDS. PATIENT AMBULATES WELL WITH ASSIST X1. WILL CONTINUE TO MONITOR.
[2017-01-29 05:25] LABS: HCT - HEMATOCRIT 37.2 % (36-46); HGB - HEMOGLOBIN 12.2 GM/DL (12-16); MEAN CORPUSCULAR HGB 29.2 UUG (26-34); MEAN CORPUSCULAR HGB CONC(MCHC 32.8 GM/DL (31-37); MEAN PLATELET VOLUME 9.3 UM3 (9.4-12.4); RED BLOOD COUNT 4.18 M/MM3 (4.00-5.20); WBC - WHITE BLOOD COUNT 6.6 T/MM3 (4.5-11.0)
[2017-01-29 05:34] LABS: ANION GAP 8 MEQ/L (5-15); BUN/CREATININE RATIO 19 RATIO (6-26); CHLORIDE 108 MEQ/L (98-107); CO2 - CARBON DIOXIDE 25 MEQ/L (22-30); CREATININE 0.7 MG/DL (0.7-1.2); GLOMERULAR FILTRATION RATE 83; GLUCOSE 111 MG/DL (65-110); POTASSIUM 3.9 MEQ/L (3.6-5); SODIUM 141 MEQ/L (134-144)
[2017-01-29] MEDS: NOZIN NASAL SWAB NS SCH (06:12)
[2017-01-29] MEDS ORDERED: METFORMIN 1,000 MG TABLET PO SCH (08:00)
[2017-01-29] MEDS ORDERED: GLIMEPIRIDE 1 MG TABLET PO SCH (08:00)
--- NOTE | 2017-01-29 08:10 | PDORTHOPN ---
Subjective Date DATE: 01/29/17 TIME: 08:07 Subjective Christi is doing great this AM She was up yesterday with good tolerance. Denies CP, cough or SOA but is needing some Oxygen this AM. Her pain is well controlled. No other concerns. Objective Vital Signs Vital signs Vital Signs 01/28/17 01/28/17 01/28/17 01/28/17 20:39 23:07 23:38 23:39 Temp 96.4 97.4 Pulse 74 59 Resp 16 12 B/P 153/94 126/77 Pulse Ox 94 94 95 O2 Delivery Nasal Cannula Room Air Nasal Cannula Nasal Cannula O2 Flow Rate 3.00 3.00 2.00 01/29/17 04:50 Temp 96.7 Pulse 59 Resp 16 B/P 116/73 Pulse Ox 95 O2 Delivery Nasal Cannula O2 Flow Rate 3.00 Height (Feet): 5 Height (Inches): 6.00 Weight (Kilograms): 92.400 General General Appearance: No Acute Distress Respiratory (Brief) Respiratory Brief: FOUND: non-labored Cardiovascular (Brief) Cardiac: FOUND: calf easily compressible, calf soft, nontender, pedal pulses intact Surgical Site Incision: FOUND: Mepilex dressing intact, bloody drainage present (Spot about the size of a quarter on the proximal edge of the incision.) Neurologic (Brief) Neurological Brief: FOUND: extremities w/o deficits, neuro intact Psychiatric (Brief) Psychiatric Brief: FOUND: alert, no acute distress Laboratory Laboratory Laboratory Tests 01/29/17 04:36 Laboratory Tests 01/28/17 06:09 01/29/17 04:36 Assessment & Plan Problems: (1) Degenerative arthritis of left knee Status: Chronic Qualifiers: Osteoarthritis type: primary Qualified Codes: M17.12 - Unilateral primary osteoarthritis, left knee Assessment & Plan: I will watch the spot on her dressing for now. Recheck after PT / OT. Consider discharge later today. Try to wean from oxygen. Aspirin protocol for VTE prophylaxis. SCD's. PT/OT services to improve independent function. Discharge Planning per Case Management. (2) DMII (diabetes mellitus, type 2) Status: Chronic Assessment & Plan: Monitor. Hospital Course Summary Disclaimer The visit summary below is not to be considered part of the above Progress Note. THIEN RANGEL Jan 29, 2017 08:10
[2017-01-29] MEDS: ASPIRIN *EC* 325mg TABLET PO SCH (08:14)
[2017-01-29] MEDS: ACETAMINOPHEN 325 MG TABLET PO SCH ×2 (08:14→13:20)
[2017-01-29 08:28] VITALS: BP 142/74; PULSE 59; RESP 16; TEMP 95.8; O2SAT 94
[2017-01-29 08:30] VITALS: PULSE 61; RESP 16
[2017-01-29] MEDS: POLYETHYL.GLYCOL 3350 PACKET 17gm PO SCH (08:34)
[2017-01-29] MEDS: CHOLECALCIFEROL 1,000 UNIT TABLET PO SCH (08:34)
[2017-01-29] MEDS: VITAMIN E 400 UNIT CAPSULE PO SCH (08:35)
[2017-01-29] MEDS ORDERED: DOCUSATE SODIUM 100 MG CAPSULE PO SCH (09:00)
[2017-01-29] MEDS ORDERED: CELECOXIB 200 MG CAPSULE PO SCH (09:00)
--- NOTE | 2017-01-29 09:15 | NUR ---
CM CM IN TO VISIT WITH PT. SHE IS ALERT AND ORIENTED. SHE PLANS TO RETURN HOME. SHE WILL DO OUTPT PT AT [facility]. SHE WOULD LIKE FWW ORDERED FROM [facility]. RX FOR CELEBREX IS CALLED TO [facility] TO CHECK COST. PT IS GIVEN CM CONTACT INFORMATION. LACE SCORE IS 8. NO FURTHER INTERVENTION NEEDED. Addendum: 01/29/17 at 0916 by RUPINDER DIAZ RN Amended: Links added.
--- NOTE | 2017-01-29 09:40 | NUR ---
CM- CELEBREX COST OF CELEBREX IS $136.58. PT IS MADE AWARE OF THIS COST. SHE REPORTS THAT THIS IS AFFORDABLE FOR HER. THIEN PAGED.
--- NOTE | 2017-01-29 09:50 | NUR ---
O2 WHILE OT WAS WORKING PT, PT DID NOT HAVE O2 ON. O2 SAT CHECKED AT READ 90% ON RA. PT LEFT ON RA, TOLERATING WELL. DENIES SOA.
--- NOTE | 2017-01-29 10:05 | NUR ---
LAQUITA CM SPOKE WITH THE [facility]. THEY ARE WORKING ON GETTING FWW APPROVED. THEY WILL CALL CM WITH ESTIMATED TIME OF DELIVERY.
[2017-01-29] MEDS ORDERED: CELE200C PO (10:35)
[2017-01-29] MEDS ORDERED: ASPI-917 PO (10:35)
[2017-01-29] MEDS ORDERED: POLY17PO18 PO (10:35)
[2017-01-29] MEDS ORDERED: TRAM50TA53 PO (10:35)
[2017-01-29] MEDS ORDERED: ACET-2321 PO (10:35)
--- NOTE | 2017-01-29 11:45 | NUR ---
O2 WHILE AT [facility], PT'S O2 SAT READ 85%. 3L O2 THROUGH NC APPLIED, O2 SAT READ 92%. PT DENIED SOA. WILL CONTINUE TO MONITOR.
[2017-01-29 11:52] VITALS: BP 127/72; PULSE 62; RESP 14; TEMP 96.2; O2SAT 93
[2017-01-29] MEDS ORDERED: NAPR220C11 PO (13:09)
--- NOTE | 2017-01-29 13:18 | DSPDOC ---
General Date Date DATE: 01/29/17 TIME: 13:13 Attending Physician Cheikh Thompson MD Admitting Physician Cheikh Thompson MD Consulting Physician Admitting Diagnosis PRIMARY DEGENERATIVE JOINT DISEASE LEFT KNEE Discharge Diagnosis Primary DJD left knee Procedures Left total knee arthroplasty History of Present Illness HPI Elements This patient was admitted for elective surgical tx of end stage degenerative joint disease that failed to respond to conservative treatment. Further details of this is found in the admission H&P. Hospital Course After appropriate preoperative clearance and signing of operative consent, the patient was given IV antibiotics, according to orthopedic protocol. The patient was taken to the operating room and underwent elective left total knee arthroplasty. Following surgery, antibiotics were discontinued less than 24 hours according to joint protocol. Aspirin was initiated and SCDs added for DVT prevention. The dressing was clean, dry, and intact at discharge but the zip ties on the wound dressing were tightened and dressing changed the morning after surgery. Pain control was obtained via multimodal approach. Bowel motivation addressed with scheduled and PRN medications. Early mobilization was initiated through PT services. She has COPD and just stopped smoking 6 weeks ago. Her oxygen sats decreased with activity but she was never symptomatic and remained afebrile. I discussed this with Dr Thompson and he thought it was okay to discharge her as she is likely at her baseline. Discharge arrangements made by a collaborative effort between the patient and Case Management. Follow-up is scheduled in 2-3 weeks. Discharge instructions given by orthopedic providers and nursing staff at discharge. Discharge condition was good. Problems: (1) Degenerative arthritis of left knee Status: Chronic Assessment & Plan: [place] at her baseline with O2 sats due to a smoking hx. She is afebrile and is not symptomatic with activity. Dressing is dry after changing it this AM and tightening the zip ties. Aspirin protocol for VTE prophylaxis. SCD's. PT/OT services to improve independent function. Discharge Planning per Case Management. (2) DMII (diabetes mellitus, type 2) Status: Chronic Assessment & Plan: Monitor. Laboratory Laboratory Tests Test 01/28/17 14:12 01/28/17 20:17 01/29/17 04:36 01/29/17 06:16 Glucometer 107mg/dL 146mg/dL 103mg/dL White Blood Count 6.6T/MM3 Red Blood Count 4.18M/MM3 Hemoglobin 12.2GM/DL Hematocrit 37.2% Mean Corpuscular Volume 89.0UM3 Mean Corpuscular Hemoglobin 29.2UUG Mean Corpuscular Hemoglobin Concent 32.8GM/DL RDW Standard Deviation 42.4FL Platelet Count 203T/MM3 Mean Platelet Volume 9.3UM3 Turbidity < 20 Sodium Level 141MEQ/L Potassium Level 3.9MEQ/L Chloride Level 108MEQ/L Carbon Dioxide Level 25MEQ/L Anion Gap 8MEQ/L Blood Urea Nitrogen 13.0MG/DL Creatinine 0.7MG/DL Glomerular Filtration Rate Calc 83 BUN/Creatinine Ratio 19RATIO Glucose Level 111MG/DL Calculated Osmolality 272MOSM/KG Calcium Level 8.0MG/DL Icterus Index < 2 Chemistry Specimen Hemolysis < 15 Test 01/29/17 10:14 Glucometer 135mg/dL Home Meds Active Scripts Naproxen Sodium (Aleve) 220 Mg Capsule, 2 CAP PO BID for PAIN, #60 CAP Prov:THIEN RANGEL 01/29/17 Polyethylene Glycol 3350 (Healthylax) 17 Gm Powd.pack, 17 G PO DAILY, #30 PACKET Prov:JEFE MENDEZ 01/29/17 Aspirin *EC* (Aspirin EC) 325 Mg Tablet.dr, 325 MG PO BID, #84 TAB Prov:JEFE MENDEZ 01/29/17 Acetaminophen (Tylenol) 325 Mg Tablet, 650 MG PO QID, #100 TAB Prov:JEFE MENDEZ 01/29/17 Tramadol HCl (Ultram) 50 Mg Tablet, 50-100 MG PO Q4H Y for PAIN, #60 TAB Prov:JEFE MENDEZ 01/29/17 Reported Medications Gabapentin (Gabapentin) 300 Mg Capsule, 1 CAP PO DAILY Y for NervePain, CAP 01/06/17 Cholecalciferol (Vitamin D3) 1,000 Unit Tablet, 1 TAB PO DAILY, TAB 01/06/17 Estradiol (Estrace) 0.5 Mg Tablet, 1 TAB PO DAILY Y for HotFlash, #30 TAB 11 Refills 01/06/17 Glimepiride (Glimepiride) 1 Mg Tablet, 2 TAB PO DAILY, TAB 01/06/17 Metformin HCl (Metformin HCl) 1,000 Mg Tablet, 1 TAB PO BIDWM, TAB Take one tablet, by mouth, twice daily with meals 01/06/17 Multivitamin (Multi-Day Vitamins) 1 Each Tablet, 1 TAB PO DAILY, TAB 01/06/17 Vitamin E (Dl,Tocopheryl Acet) (Vitamin E) 400 Unit Capsule, 400 UNIT PO DAILY, CAP 01/06/17 Discontinued Reported Medications Aspirin (Aspir 81) 81 Mg Tablet.dr, 1 TAB PO DAILY, TAB 01/06/17 Tramadol HCl (Tramadol HCl) 50 Mg Tablet, 50-100 MG PO Q4H Y for PAIN, TAB Take 1 tablet, by mouth, every 4 hours. 01/06/17 Naproxen (Naproxen) 500 Mg Tablet, 1 TAB PO TIDWM, TAB 01/06/17 Discharge Disposition Please refer to Case Management Notes for patient's disposition. Estimated Blood Loss 50.0 THIEN RANGEL Jan 29, 2017 13:16
--- NOTE | 2017-01-29 13:46 | NUR ---
PRESCRIPTION TRAMADOL 50-100 G PO Q4H PRN FOR PAIN CALLED INTO [facility] TO [facility].
--- NOTE | 2017-01-29 14:45 | NUR ---
DISCHARGE PT DISCHARGED TO HOME IN GOOD CONDITION. TOTAL KNEE REPLACEMENT DISCHARGE INSTRUCTIONS REVIEWED. PT'S QUESTIONS ANSWERED AND PT VERBALIZED UNDERSTANDING. PT ON RA. PT EXITED BY WHEELCHAIR THROUGH FRONT ENTRANCE ACCOMPANIED BY FRIEND.
[2017-01-30] MEDS ORDERED: MILK OF MAGNESIA 30 ML SUSP PO SCH (08:00)
[2017-01-30] MEDS ORDERED: BISACODYL 10 MG SUPPOSITORY RECTALLY SCH (20:00)
== END 2017-01-29 14:43 | disposition home or self-care (01) | DRG 470 ==
LOC: SRG 05:27
PROVIDERS: ADMIT Orthopaedic Surgery; ATTEND Orthopaedic Surgery
PROC: 0SRD0J9 Replacement of Left Knee Joint with Synthetic Substitute, Cemented, Open Approach (ICD-10-PCS; principal; 2017-01-28 07:39)
DX: M17.12 Unilateral primary osteoarthritis, left knee (principal); E11.9 Type 2 diabetes mellitus without complications; F17.200 Nicotine dependence, unspecified, uncomplicated; I10 Essential (primary) hypertension; E66.01 Morbid (severe) obesity due to excess calories; Z68.32 Body mass index [BMI] 32.0-32.9, adult; Z79.890 Hormone replacement therapy
CPT/HCPCS: 36415; 80048; 82948; 85027